=== PATIENT | male | born 1975 | race Caucasian/White ===

== ENCOUNTER 2016-12-28 07:25 | Emergency (ER) | payer BC ==
[~2016-12-28] VITALS: Ht 177.8 cm; Wt 81.6 kg
[~2016-12-28 07:25] MED LIST: AUGMENTIN XR 101 TER PO; CEFUROXIME AXE500 MG PO; EXPECTORANT200 MG PO; FLONASE 50 MCG16 GM; LEVAQUIN500 MG PO; MEDROL 4MG. DOSE4 MG PO; NOMEDS *; NOMEDS XX; PREDNISONE 20MG20 MG PO; TORADOL10 M2 PO
[2016-12-28] MEDS ORDERED: NOMEDS XX (07:37)
[2016-12-28 07:41] LABS: HEMOGLOBIN 16.6 g/dL (14.1-18.0); LYMPH # 1.4 K/mm3 (0.7-4.5); LYMPH % 28.5 % (10-50)
[2016-12-28 08:12] LABS: BUN 20 mg/dL (7-18)
[2016-12-28 08:13] LABS: GFR (ESTIMATED) 74 ML/MIN (>60)
--- NOTE | 2016-12-28 08:16 | Emergency Room Report ---
See Addendum History of Present Illness Time Seen by MD Campos Presenting Problem in Triage Pt arrived:Walked Presenting Problem:PT STATES THAT HE HAS CHEST PRESSURE/FULLNESS THAT BEGAN AT 0500. 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 N Clinical Suspician of Infection? N Mental Status: 1 - Regular (Normal Baseline) Sepsis Risk:Possible Sepsis Risk Have you (or family members/close friends) recently traveled outside the [place]? N If Yes, where/when: Have you had exposure to infectious disease within the past month? N TB? Other? Specify: Source patient, RN notes reviewed Exam Limitations no limitations Comment PT awakened at 5AM with a chest pressure and he comes to the ED still with Chest pressure ...history of Ashli and seen by Dr. Suero at [facility] but heart cath and stress test negative. History of some anxiety but no stress recently. Quit smoking over a year ago. BP is elevated today but no history of hypertension or hyperlipidemia and he is not a Diabetic Cardiac Chest Pain Chest pain indicative of cardiac Yes Timing/Duration 4-6 hours Severity/Quality moderate ALLERGIES Uncoded Allergies: IV CONTRAST (NA-NAUSEA 02/15/14) Home Medications Reported Medications No Home Medications (NO HOME MEDICATIONS) 1 EACH XX ONCE History Medical History General CAD? No Angina: Yes [place]: No Hypertension? Yes Hyperlipidemia? No CHF? No DVT? No PE? No COPD? No Asthma? No Anemia? No GERD? No Gastric ulcers? No GI Bleed? No Hernia? No Thyroid Problems? No Hypothyroidism? No CVA? No Seizures? No Diabetes? No Renal Insuffiency? No End Stage Renal Disease? No UTI? No Stones? No GB Disease: No Nephritic Syndrome? No Asplenia? No Hepatitis? No Sickle Cell Disease? No Arthritis? No Migraines? No Cataracts? No Glaucoma? No MRSA? No HIV? No TB? No Anxiety? No Depression? 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 Yes Additional hx: MONO IN 2016 PERSISTANT LEFT SIDE PAIN Immunization Hx DT/Tetanus 1-4 Years Ago Flu Refused Pneumonia Refuses Surgical Hx Previous Surgery?Y RT.WRIST LIGAMENT REPAIR VASECTOMY AND REVERSED L KNEE Family History Family Hx Diabetes Yes CAD Yes Hypertension Yes Hyperlipidemia Yes Cancer Yes TB No Social History Smoking Hx Smoker: Former Smoker Tobacco: No Type Cigarettes Packs/day N/A Are you/the child exposed to second-hand smoke: Yes Alcohol Alcohol: No Review of Systems All Other Systems Reviewed and Negative Constitutional see HPI Respiratory see HPI Cardiovascular see HPI Physical Exam Vital Signs Vital Signs Date Time Temp Pulse Resp B/P Pulse O2 O2 Flow FiO2 Ox Delivery Rate 12/28 1137 74 20 118/87 97 12/28 1036 98.6 76 20 124/89 97 12/28 1004 99.1 78 22 118/93 96 12/28 0842 80 22 121/68 97 12/28 0756 102 22 164/102 100 12/28 0730 98.3 100 22 168/93 100 General Appearance no apparent distress Respiratory Status No: respiratory distress. Lung Sounds bilateral: normal breath sounds. Cardiovascular normal exam, regular rate/rhythm Neurologic alert, communications manager II-XII nml as tested, normal exam Medical Decision Making LABS/Meds/Orders Pt receiving controlled substance in ED? No Results/Orders Laboratory Tests 12/28/16 1115: Creatine Kinase 149, CK-MB (CK-2) Rel Index 0.7, CK and CKMB Interp 1.0, Troponin I < 0.02 12/28/16 0733: Sodium 141, Potassium 3.8, Chloride 104, Carbon Dioxide 26, BUN 20 H, Creatinine 1.1, Estimated Creat Clear 103, Estimated GFR (MDRD) 74, Glucose 111 H, Calcium 9.0, Total Bilirubin 0.9, AST 23, ALT 22, Alkaline Phosphatase 73, Creatine Kinase 199, CK-MB (CK-2) Rel Index 0.5, CK and CKMB Interp 0.9, Troponin I < 0.02, Total Protein 7.8, Albumin 4.0, Globulin 3.8 H, Albumin/ Globulin Ratio 1.1, WBC 4.8, RBC 5.47, Hgb 16.6, Hct 46.7, MCV 85.3, RDW 12.8, Plt Count 236, MPV 5.9 L, Gran % 61.9, Gran # 3.0, Lymphocytes % 28.5, Monocytes % 6.1, Eosinophils % 2.8, Basophils % 0.6, Lymphocytes # 1.4, Monocytes # 0.3, Eosinophils # 0.1, Basophils # 0.0, PUBS MCHC 35.6 H, MCH 30.4 Current Medication Orders Sig/Kvng Start time Last Medication Dose Route Stop Time Status Admin Buspirone HCl 10 MG ONCE ONE 12/28 0845 DC 12/28 PO 12/28 0846 0857 Nitroglycerin 0 .STK-MED ONE 12/28 0831 DC SL Nitroglycerin 0.4 MG [id number] PRN 12/28 08 AC 12/28 PO 0834 Aspirin 0 .STK-MED ONE 12/28 0801 DC .ROUTE Aspirin 324 MG ONCE ONE 12/28 0800 DC 12/28 PO 12/28 0801 0802 Orders Procedure Date/time Status CARDIAC ENZYMES 12/28 0925 Complete CHEST(2 VIEWS-NOT PORTABLE) 12/28 0750 Active ELECTROCARDIOGRAM REQUEST 12/28 0736 Active IV SALINE LOCK 12/28 0736 Active PATIENT SAFETY OFFICER 12/28 0736 Active CBC WITH AUTO DIFF 12/28 0736 Complete CARDIAC ENZYMES 12/28 0736 Complete CHEM 12 PROFILE 12/28 0736 Complete 12 LEAD EKG-BESSON (INITIAL) 12/28 UNK Active Departure Departure Time of Disposition 1205 Disposition DC Home or Self Care(routine) Clinical Impression Primary Impression: Chest pain Qualifiers: Chest pain type: precordial pain Qualified Code: R07.2 - Precordial pain Secondary Impressions: Anxiety Condition STABLE Referrals [facility] Patient Instructions DI for Chest Pain Additional Instructions Advised to follow up with Dr. Ennis for further evaluation Discharge Counseling Counseled pt/family regarding diagnosis, test results, medications/RX, home care, follow up needs ED Critical Care Critical Care No If Critical Care minutes are documented, the time involved in the performance of seperately reportable procedures was not counted toward critical care time documented. I directly delivered medical care to this critically ill and/or injured patient. Timely evaluation and treatment was necessary to address the significant organ system(s) dysfunction present in this patient. at 1207
--- NOTE | 2016-12-28 08:16 | Emergency Room Report ---
See Addendum History of Present Illness Time Seen by MD Campos Presenting Problem in Triage Pt arrived:Walked Presenting Problem:PT STATES THAT HE HAS CHEST PRESSURE/FULLNESS THAT BEGAN AT 0500. 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 N Clinical Suspician of Infection? N Mental Status: 1 - Regular (Normal Baseline) Sepsis Risk:Possible Sepsis Risk Have you (or family members/close friends) recently traveled outside the [place]? N If Yes, where/when: Have you had exposure to infectious disease within the past month? N TB? Other? Specify: Source patient, RN notes reviewed Exam Limitations no limitations Comment PT awakened at 5AM with a chest pressure and he comes to the ED still with Chest pressure ...history of Ashli and seen by Dr. Suero at [facility] but heart cath and stress test negative. History of some anxiety but no stress recently. Quit smoking over a year ago. BP is elevated today but no history of hypertension or hyperlipidemia and he is not a Diabetic Cardiac Chest Pain Chest pain indicative of cardiac Yes Timing/Duration 4-6 hours Severity/Quality moderate ALLERGIES Uncoded Allergies: IV CONTRAST (NA-NAUSEA 02/15/14) Home Medications Reported Medications No Home Medications (NO HOME MEDICATIONS) 1 EACH XX ONCE History Medical History General CAD? No Angina: Yes [place]: No Hypertension? Yes Hyperlipidemia? No CHF? No DVT? No PE? No COPD? No Asthma? No Anemia? No GERD? No Gastric ulcers? No GI Bleed? No Hernia? No Thyroid Problems? No Hypothyroidism? No CVA? No Seizures? No Diabetes? No Renal Insuffiency? No End Stage Renal Disease? No UTI? No Stones? No GB Disease: No Nephritic Syndrome? No Asplenia? No Hepatitis? No Sickle Cell Disease? No Arthritis? No Migraines? No Cataracts? No Glaucoma? No MRSA? No HIV? No TB? No Anxiety? No Depression? 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 Yes Additional hx: MONO IN 2016 PERSISTANT LEFT SIDE PAIN Immunization Hx DT/Tetanus 1-4 Years Ago Flu Refused Pneumonia Refuses Surgical Hx Previous Surgery?Y RT.WRIST LIGAMENT REPAIR VASECTOMY AND REVERSED L KNEE Family History Family Hx Diabetes Yes CAD Yes Hypertension Yes Hyperlipidemia Yes Cancer Yes TB No Social History Smoking Hx Smoker: Former Smoker Tobacco: No Type Cigarettes Packs/day N/A Are you/the child exposed to second-hand smoke: Yes Alcohol Alcohol: No Review of Systems All Other Systems Reviewed and Negative Constitutional see HPI Respiratory see HPI Cardiovascular see HPI Physical Exam Vital Signs Vital Signs Date Time Temp Pulse Resp B/P Pulse O2 O2 Flow FiO2 Ox Delivery Rate 12/28 1137 74 20 118/87 97 12/28 1036 98.6 76 20 124/89 97 12/28 1004 99.1 78 22 118/93 96 12/28 0842 80 22 121/68 97 12/28 0756 102 22 164/102 100 12/28 0730 98.3 100 22 168/93 100 General Appearance no apparent distress Respiratory Status No: respiratory distress. Lung Sounds bilateral: normal breath sounds. Cardiovascular normal exam, regular rate/rhythm Neurologic alert, cooler worker II-XII nml as tested, normal exam Medical Decision Making LABS/Meds/Orders Pt receiving controlled substance in ED? No Results/Orders Laboratory Tests 12/28/16 1115: Creatine Kinase 149, CK-MB (CK-2) Rel Index 0.7, CK and CKMB Interp 1.0, Troponin I < 0.02 12/28/16 0733: Sodium 141, Potassium 3.8, Chloride 104, Carbon Dioxide 26, BUN 20 H, Creatinine 1.1, Estimated Creat Clear 103, Estimated GFR (MDRD) 74, Glucose 111 H, Calcium 9.0, Total Bilirubin 0.9, AST 23, ALT 22, Alkaline Phosphatase 73, Creatine Kinase 199, CK-MB (CK-2) Rel Index 0.5, CK and CKMB Interp 0.9, Troponin I < 0.02, Total Protein 7.8, Albumin 4.0, Globulin 3.8 H, Albumin/ Globulin Ratio 1.1, WBC 4.8, RBC 5.47, Hgb 16.6, Hct 46.7, MCV 85.3, RDW 12.8, Plt Count 236, MPV 5.9 L, Gran % 61.9, Gran # 3.0, Lymphocytes % 28.5, Monocytes % 6.1, Eosinophils % 2.8, Basophils % 0.6, Lymphocytes # 1.4, Monocytes # 0.3, Eosinophils # 0.1, Basophils # 0.0, PUBS MCHC 35.6 H, MCH 30.4 Current Medication Orders Sig/Kvng Start time Last Medication Dose Route Stop Time Status Admin Buspirone HCl 10 MG ONCE ONE 12/28 0845 DC 12/28 PO 12/28 0846 0857 Nitroglycerin 0 .STK-MED ONE 12/28 0831 DC SL Nitroglycerin 0.4 MG [id number] PRN 12/28 08 AC 12/28 PO 0834 Aspirin 0 .STK-MED ONE 12/28 0801 DC .ROUTE Aspirin 324 MG ONCE ONE 12/28 0800 DC 12/28 PO 12/28 0801 0802 Orders Procedure Date/time Status CARDIAC ENZYMES 12/28 0925 Complete CHEST(2 VIEWS-NOT PORTABLE) 12/28 0750 Active ELECTROCARDIOGRAM REQUEST 12/28 0736 Active IV SALINE LOCK 12/28 0736 Active TOLL TRANSMISSION WORKER 12/28 0736 Active CBC WITH AUTO DIFF 12/28 0736 Complete CARDIAC ENZYMES 12/28 0736 Complete CHEM 12 PROFILE 12/28 0736 Complete 12 LEAD EKG-BESSON (INITIAL) 12/28 UNK Active Departure Departure Time of Disposition 1205 Disposition DC Home or Self Care(routine) Clinical Impression Primary Impression: Chest pain Qualifiers: Chest pain type: precordial pain Qualified Code: R07.2 - Precordial pain Secondary Impressions: Anxiety Condition STABLE Referrals [facility] Patient Instructions DI for Chest Pain Additional Instructions Advised to follow up with Dr. Ennis for further evaluation Discharge Counseling Counseled pt/family regarding diagnosis, test results, medications/RX, home care, follow up needs ED Critical Care Critical Care No If Critical Care minutes are documented, the time involved in the performance of seperately reportable procedures was not counted toward critical care time documented. I directly delivered medical care to this critically ill and/or injured patient. Timely evaluation and treatment was necessary to address the significant organ system(s) dysfunction present in this patient. at 1207
[2016-12-28 12:18] VITALS: BP 157/91
--- NOTE | 2016-12-28 14:14 | RADIOLOGY REPORT PS360 ---
CHEST(2 VIEWS-NOT PORTABLE) INDICATION: Chest pain COMPARISON: PA and lateral chest 10/19/2016 FINDINGS: The lung gagnon are well expanded and appear clear of infiltrate. The cardiomediastinal silhouette and vascularity are normal. The costophrenic angles are clear. The bony thorax is normal. IMPRESSION: Normal chest.
== END 2016-12-28 12:23 | disposition home or self-care (01) ==
LOC: ER 07:25
PROVIDERS: Emergency Medicine
DX: R07.2 Precordial pain (principal); Z87.891 Personal history of nicotine dependence

== ENCOUNTER → 2016-12-30 | Outpatient (CLI) | payer BC ==
[~2016-12-30] MED LIST changes: +ASPIRIN325 M1 PO; +NITROGLYCERIN0.4 M1 SL; +PANTOPRAZOLE SO40 M1 PO; +PROCTOCREAM-HC2.5% TP
--- NOTE | 2016-12-30 17:49 | RADIOLOGY REPORT PS360 ---
CT ABD PELVIS W/O CONTRAST CLINICAL INDICATION: Left upper quadrant pain LUQ PAIN ORDERING PHYSICIAN: LYNETTE VELIZ PATIENT AGE: 41 years COMPARISON: None TECHNIQUE: Axial images obtained with sagittal and coronal reformats. PROCEDURE: Oral Contrast: None IV Contrast: None . FINDINGS: Lung bases are clear. No focal liver lesion evident. There is mild splenomegaly measuring 15 cm in maximum AP dimension. The pancreas, and adrenal glands are unremarkable. Gallbladder appears contracted with mild thickening of the wall which could be postprandial in nature. Please correlate clinically. No renal calculi or hydronephrosis. No obvious renal mass. No ureteral calculi. Prior appendectomy. No evidence of diverticulitis, intestinal obstruction, or free air. Prior mastectomy. The abdominal wall has an unremarkable appearance. No acute bony anomalies. IMPRESSION: 1. Mild splenomegaly. 2. Other nonacute findings as described above.
== END ==
LOC: RAD 14:46
DX: R10.12 Left upper quadrant pain (principal)

== ENCOUNTER 2017-01-05 16:43 | Observation (INO) | payer BC ==
[~2017-01-05] VITALS: Ht 177.8 cm; Wt 83.3 kg
[~2017-01-05 16:43] MED LIST changes: -ASPIRIN325 M1 PO; -NITROGLYCERIN0.4 M1 SL; -PANTOPRAZOLE SO40 M1 PO; -PROCTOCREAM-HC2.5% TP
[2017-01-05 16:44] VITALS: BP 150/90
[2017-01-05] MEDS ORDERED: NITROGLYCERIN0.4 M1 SL (16:48)
[2017-01-05 16:55] LABS: HEMOGLOBIN 15.9 g/dL (14.1-18.0); LYMPH # 1.8 K/mm3 (0.7-4.5); LYMPH % 28.4 % (10-50)
[2017-01-05 17:23] LABS: BUN 16 mg/dL (7-18)
--- NOTE | 2017-01-05 17:23 | Emergency Room Report ---
See Addendum History of Present Illness Time Seen by [id number] Presenting Problem in Triage Pt arrived:Walked Presenting Problem:PT SENT FROM [facility]'S OFFICE WITH CHEST PRESSURE. PT ADVISES HE FEELS LIKE SOMEONE IS SITTING ON HIS CHEST. ADVISES THIS STARTED EARLY THIS AM. 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 N Clinical Suspician of Infection? N Mental Status: 1 - Regular (Normal Baseline) Sepsis Risk:Low Sepsis Risk Have you (or family members/close friends) recently traveled outside the [place]? N If Yes, where/when: Have you had exposure to infectious disease within the past month? N TB? Other? Specify: Patient reports chest "heaviness" with onset yesterday at rest, nonradiating, no SOB, no n/v, no diaphoresis. Had a similar episode about eleven days ago, cardiac enzymes normal and discharged home with recommendation to follow up with his firer retort. He has an appointment with Dr. Everett on February 03. However, the chest pressure has been persistent and he presented to his JEWELRY MECHANIC's office earlier today and he states his heart rate varied between the 80's and low 100's. He took aspirin HYDROGEN OPERATOR and received ASA on arrival in the ED. He was given one NTG at the JEWELRY MECHANIC office with relief of discomfort. He arrives in NSR with a rate in the low 80's but still c/o some "pressure" but not pain. 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 He denies known CAD, denies HTN, denies hyperlipidemia and denies DM. States dad had a hx of "bundle branch block" and dad's parents had CAD. ALLERGIES Uncoded Allergies: IV CONTRAST (NA-NAUSEA 02/15/14) Home Medications Reported Medications No Home Medications (NO HOME MEDICATIONS) 1 EACH XX ONCE Nitroglycerin 0.4 MG SL PRN PRN CHEST PAIN #100 History Medical History General CAD? No Angina: Yes [place]: No Hypertension? Yes Hyperlipidemia? No CHF? No DVT? No PE? No COPD? No Asthma? No Anemia? No GERD? No Gastric ulcers? No GI Bleed? No Hernia? No Thyroid Problems? No Hypothyroidism? No CVA? No Seizures? No Diabetes? No Renal Insuffiency? No End Stage Renal Disease? No UTI? No Stones? No GB Disease: No Nephritic Syndrome? No Asplenia? No Hepatitis? No Sickle Cell Disease? No Arthritis? No Migraines? No Cataracts? No Glaucoma? No MRSA? No HIV? No TB? No Anxiety? No Depression? 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 Yes Additional hx: MONO IN 2016 PERSISTANT LEFT SIDE PAIN Immunization Hx DT/Tetanus 1-4 Years Ago Flu Refused Pneumonia Refuses Surgical Hx Previous Surgery?Y RT.WRIST LIGAMENT REPAIR VASECTOMY AND REVERSED L KNEE Family History Family Hx Diabetes Yes CAD Yes Hypertension Yes Hyperlipidemia Yes Cancer Yes TB No Social History Smoking Hx Smoker: Former Smoker Tobacco: No Packs/day N/A Alcohol Alcohol: No Review of Systems All Other Systems Reviewed and Negative Cardiovascular see HPI Physical Exam Vital Signs Vital Signs Date Time Temp Pulse Resp B/P Pulse O2 O2 Flow FiO2 Ox Delivery Rate 01/05 1747 85 20 125/93 98 01/05 1644 98.5 97 16 150/90 98 General Appearance normal appearance, WD/WN, no apparent distress Eye Exam - bilateral eye normal exam, bilateral eye PERRL, bilateral eye EOMI Neck normal inspection, non-tender, supple, full range of motion Respiratory Status Yes: trachea midline, chest symmetrical, non tender chest. No: respiratory distress, tender on palpation, use of accessory muscles, pain on inspiration, pain on expiration, productive cough, non productive cough. Lung Sounds bilateral: normal breath sounds, lungs clear. Cardiovascular normal exam, regular rate/rhythm, no peripheral edema, no gallop, no JVD, no murmur, no rub, normal peripheral pulses Gastrointestinal normal bowel sounds, normal exam, non tender, soft, no organomegaly, no pulsatile mass, no guarding, no rebound Extremities non-tender, normal range of motion, normal inspection, normal capillary refill, no calf tenderness, no pedal edema Neurologic alert, normal exam, no motor/sensory deficits, oriented x 3 Skin intact, normal color, warm/dry Lymphatic no adenopathy Medical Decision Making LABS/Meds/Orders Pt receiving controlled substance in ED? No Results/Orders Laboratory Tests 01/05/17 1640: TSH Pending, Free T4 Index Pending, Thyroxine (T4) Pending, T3 Uptake Pending 01/05/17 1640: Sodium 138, Potassium 3.8, Chloride 103, Carbon Dioxide 28, BUN 16, Creatinine 1.0, Estimated Creat Clear 117, Estimated GFR (MDRD) 83, Glucose 111 H, Calcium 8.8, Total Bilirubin 0.5, AST 23, ALT 23, Alkaline Phosphatase 65, Creatine Kinase 115, CK-MB (CK-2) Rel Index 0.5, CK and CKMB Interp 0.6, Troponin I < 0.02, Total Protein 7.7, Albumin 4.0, Globulin 3.7 H, Albumin/Globulin Ratio 1.1, D-Dimer < 100, WBC 6.4, RBC 5.36, Hgb 15.9, Hct 46.1, MCV 85.9, RDW 12.8, Plt Count 264, MPV 5.9 L, Gran % 60.7, Gran # 3.9, Lymphocytes % 28.4, Monocytes % 7.2, Eosinophils % 3.0, Basophils % 0.7, Lymphocytes # 1.8, Monocytes # 0.5, Eosinophils # 0.2, Basophils # 0.1, PUBS MCHC 34.5, MCH 29.6 Current Medication Orders Sig/Kvng Start time Last Medication Dose Route Stop Time Status Admin Aspirin 324 MG ONCE ONE 01/05 1700 DC 01/05 PO 01/05 1701 1650 Sodium Chloride 10 ML PRN PRN 01/05 1700 AC IV 01/06 1649 Aspirin 0 .STK-MED ONE 01/05 1651 DC .ROUTE Orders Procedure Date/time Status Decision to admit 01/05 1757 Active THYROID PANEL 2 (WITH TSH) 01/05 1707 Active ELECTROCARDIOGRAM REQUEST 01/05 1649 Active CHEST(2 VIEWS-NOT PORTABLE) 01/05 1649 Active IV SALINE LOCK 01/05 1649 Active D-DIMER 01/05 1649 Complete CBC WITH AUTO DIFF 01/05 1649 Complete CARDIAC ENZYMES 01/05 164 Complete CHEM 12 PROFILE 01/05 1649 Complete CM/EKG CM/EKG EKG rate, NSR, rhythm, no evid. of ischemic chgs, no ectopy, normal QRS, normal [place], normal EKG (NSR 83;) XRAY/CT/US XRAY/CT/US XRAY chest XR interpretation by reviewed by me Xray Results no infiltrates, normal heart size, normal lung inflation fernando Consult MD Physician Consult Time Called 175 Reason Admission Progress ED Progress Notes Date 01/05/17 Time 175 Comment Patient stable, resting comfortably, in NSR, no complaints, is in NSR on monitor with Dr. Rain alterations expert for Dr. Bina orlando. Departure Departure Time of Disposition 175 Disposition Still a Patient Clinical Impression Primary Impression: Chest pressure Condition STABLE Referrals [facility] LOMBARDO (Family) ED Critical Care Critical Care No at 1750
--- NOTE | 2017-01-05 17:23 | Emergency Room Report ---
See Addendum History of Present Illness Time Seen by [id number] Presenting Problem in Triage Pt arrived:Walked Presenting Problem:PT SENT FROM [facility] OFFICE WITH CHEST PRESSURE. PT ADVISES HE FEELS LIKE SOMEONE IS SITTING ON HIS CHEST. ADVISES THIS STARTED EARLY THIS AM. Onset of symptoms date/time:/ or onset unknown for:MEDICAL HX UNKNOWN Treatment Prior to Arrival: PT WAS BEING SEEN AT HIS FAMILY DOC FOR CHEST PRESSURE AND WAS SENT TO ER FOR FURTHER EVAUL BARREL TURNER Provided by:OTHER Sepsis Risk Assessment: Temp: 98.5 B/P: 150/90 MAP: 110 Pulse: 97 Resp: 16 Recent fever? N Clinical Suspician of Infection? N Mental Status: 1 - Regular (Normal Baseline) Sepsis Risk:Low Sepsis Risk Have you (or family members/close friends) recently traveled outside the [place]? N If Yes, where/when: Have you had exposure to infectious disease within the past month? N TB? Other? Specify: Patient reports chest "heaviness" with onset yesterday at rest, nonradiating, no SOB, no n/v, no diaphoresis. Had a similar episode about eleven days ago, cardiac enzymes normal and discharged home with recommendation to follow up with his welder boilermaker. He has an appointment with Dr. Everett on February 03. However, the chest pressure has been persistent and he presented to his WEB MARKETING ANALYST's office earlier today and he states his heart rate varied between the 80's and low 100's. He took aspirin BARREL TURNER and received ASA on arrival in the ED. He was given one NTG at the WEB MARKETING ANALYST office with relief of discomfort. He arrives in NSR with a rate in the low 80's but still c/o some "pressure" but not pain. 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 He denies known CAD, denies HTN, denies hyperlipidemia and denies DM. States dad had a hx of "bundle branch block" and dad's parents had CAD. ALLERGIES Uncoded Allergies: IV CONTRAST (NA-NAUSEA 02/15/14) Home Medications Reported Medications No Home Medications (NO HOME MEDICATIONS) 1 EACH XX ONCE Nitroglycerin 0.4 MG SL PRN PRN CHEST PAIN #100 History Medical History General CAD? No Angina: Yes [place]: No Hypertension? Yes Hyperlipidemia? No CHF? No DVT? No PE? No COPD? No Asthma? No Anemia? No GERD? No Gastric ulcers? No GI Bleed? No Hernia? No Thyroid Problems? No Hypothyroidism? No CVA? No Seizures? No Diabetes? No Renal Insuffiency? No End Stage Renal Disease? No UTI? No Stones? No GB Disease: No Nephritic Syndrome? No Asplenia? No Hepatitis? No Sickle Cell Disease? No Arthritis? No Migraines? No Cataracts? No Glaucoma? No MRSA? No HIV? No TB? No Anxiety? No Depression? 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 Yes Additional hx: MONO IN 2016 PERSISTANT LEFT SIDE PAIN Immunization Hx DT/Tetanus 1-4 Years Ago Flu Refused Pneumonia Refuses Surgical Hx Previous Surgery?Y RT.WRIST LIGAMENT REPAIR VASECTOMY AND REVERSED L KNEE Family History Family Hx Diabetes Yes CAD Yes Hypertension Yes Hyperlipidemia Yes Cancer Yes TB No Social History Smoking Hx Smoker: Former Smoker Tobacco: No Packs/day N/A Alcohol Alcohol: No Review of Systems All Other Systems Reviewed and Negative Cardiovascular see HPI Physical Exam Vital Signs Vital Signs Date Time Temp Pulse Resp B/P Pulse O2 O2 Flow FiO2 Ox Delivery Rate 01/05 1747 85 20 125/93 98 01/05 1644 98.5 97 16 150/90 98 General Appearance normal appearance, WD/WN, no apparent distress Eye Exam - bilateral eye normal exam, bilateral eye PERRL, bilateral eye EOMI Neck normal inspection, non-tender, supple, full range of motion Respiratory Status Yes: trachea midline, chest symmetrical, non tender chest. No: respiratory distress, tender on palpation, use of accessory muscles, pain on inspiration, pain on expiration, productive cough, non productive cough. Lung Sounds bilateral: normal breath sounds, lungs clear. Cardiovascular normal exam, regular rate/rhythm, no peripheral edema, no gallop, no JVD, no murmur, no rub, normal peripheral pulses Gastrointestinal normal bowel sounds, normal exam, non tender, soft, no organomegaly, no pulsatile mass, no guarding, no rebound Extremities non-tender, normal range of motion, normal inspection, normal capillary refill, no calf tenderness, no pedal edema Neurologic alert, normal exam, no motor/sensory deficits, oriented x 3 Skin intact, normal color, warm/dry Lymphatic no adenopathy Medical Decision Making LABS/Meds/Orders Pt receiving controlled substance in ED? No Results/Orders Laboratory Tests 01/05/17 1640: TSH Pending, Free T4 Index Pending, Thyroxine (T4) Pending, T3 Uptake Pending 01/05/17 1640: Sodium 138, Potassium 3.8, Chloride 103, Carbon Dioxide 28, BUN 16, Creatinine 1.0, Estimated Creat Clear 117, Estimated GFR (MDRD) 83, Glucose 111 H, Calcium 8.8, Total Bilirubin 0.5, AST 23, ALT 23, Alkaline Phosphatase 65, Creatine Kinase 115, CK-MB (CK-2) Rel Index 0.5, CK and CKMB Interp 0.6, Troponin I < 0.02, Total Protein 7.7, Albumin 4.0, Globulin 3.7 H, Albumin/Globulin Ratio 1.1, D-Dimer < 100, WBC 6.4, RBC 5.36, Hgb 15.9, Hct 46.1, MCV 85.9, RDW 12.8, Plt Count 264, MPV 5.9 L, Gran % 60.7, Gran # 3.9, Lymphocytes % 28.4, Monocytes % 7.2, Eosinophils % 3.0, Basophils % 0.7, Lymphocytes # 1.8, Monocytes # 0.5, Eosinophils # 0.2, Basophils # 0.1, PUBS MCHC 34.5, MCH 29.6 Current Medication Orders Sig/Kvng Start time Last Medication Dose Route Stop Time Status Admin Aspirin 324 MG ONCE ONE 01/05 1700 DC 01/05 PO 01/05 1701 1650 Sodium Chloride 10 ML PRN PRN 01/05 1700 AC IV 01/06 1649 Aspirin 0 .STK-MED ONE 01/05 1651 DC .ROUTE Orders Procedure Date/time Status Decision to admit 01/05 1757 Active THYROID PANEL 2 (WITH TSH) 01/05 1707 Active ELECTROCARDIOGRAM REQUEST 01/05 1649 Active CHEST(2 VIEWS-NOT PORTABLE) 01/05 1649 Active IV SALINE LOCK 01/05 1649 Active D-DIMER 01/05 1649 Complete CBC WITH AUTO DIFF 01/05 1649 Complete CARDIAC ENZYMES 01/05 164 Complete CHEM 12 PROFILE 01/05 1649 Complete CM/EKG CM/EKG EKG rate, NSR, rhythm, no evid. of ischemic chgs, no ectopy, normal QRS, normal MA, normal EKG (NSR 83;) XRAY/CT/US XRAY/CT/US XRAY chest XR interpretation by reviewed by me Xray Results no infiltrates, normal heart size, normal lung inflation fernando Consult MD Physician Consult Time Called 175 Reason Admission Progress ED Progress Notes Date 01/05/17 Time 175 Comment Patient stable, resting comfortably, in NSR, no complaints, is in NSR on monitor with Dr. Rain stone belt sander for Dr. Bina orlando. Departure Departure Time of Disposition 175 Disposition Still a Patient Clinical Impression Primary Impression: Chest pressure Condition STABLE Referrals [facility] (Family) ED Critical Care Critical Care No at 1750
[2017-01-05 17:24] LABS: GFR (ESTIMATED) 83 ML/MIN (>60)
[2017-01-05 18:08] LABS: FREE THYROXIN INDEX 7.6 ug/dl (5.93-13.13)
[2017-01-05 18:36] VITALS: BP 119/73
[2017-01-05 18:37] VITALS: BP 119/73
[2017-01-05 20:26] VITALS: BP 114/84
--- NOTE | 2017-01-05 20:30 | RADIOLOGY REPORT PS360 ---
CHEST(2 VIEWS-NOT PORTABLE) Ordering Physician: Zach Curran MD Patient Age: 41 years: Male HISTORY: CHEST PRESSUREchest pain TECHNIQUE: PA and lateral chest. FINDINGS No significant change versus 12/28/2016 CXR. No pneumothorax. No focal pneumonia. No pleural effusion. No active disease evident. Heart sadie and mediastinal structures satisfactory. Chest wall unremarkable. Heart normal size. Normal pulmonary vascularity IMPRESSION: Stable chest with No active disease. .
[2017-01-05 21:20] VITALS: BP 114/84
[2017-01-06] VITALS (7 sets, daily range): BP systolic 106–131; BP diastolic 58–82
[2017-01-06 06:28] LABS: HEMOGLOBIN 14.9 g/dL (14.1-18.0); LYMPH # 1.3 K/mm3 (0.7-4.5); LYMPH % 26.2 % (10-50)
--- NOTE | 2017-01-06 08:01 | CONSULT NOTE ---
Standard Demographics Patient Demo Date of Consultation: 01/06/17 Referring Provider: Christiano Curran MD Reason for Consultation: Chest pain PRIMARY DIAGNOSIS: CHEST PAIN Problem list Problem list: 1. Ex-smoker, discontinued approximately 2007. 2. History of Wenkebach in past but without syncope. 3. History of normal cardiac catheterization approximately 15 years ago. 4. Family history of coronary artery disease in grandparents. History of present illness: History of present illness: 41-year-old white male admitted through the emergency department due to recurrent episodes of chest pain. Patient describes a 2 week history of heavy chest pressure without radiation, shortness of breath, nausea, vomiting or diaphoresis. 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 Patient has an appointment late in January. Symptoms recurred yesterday at rest at work but also patient states symptoms occur with activity. He became concerned and went to his family practice doctor at which time he was given sublingual nitroglycerin for the chest discomfort with relief of discomfort. He also relates of variation in heart rate from the 70s to the 120s. He was sent to the emergency department for further evaluation. Due to recurrence of symptoms patient was admitted for further observation. Troponins have returned normal. Electrocardiogram is sinus rhythm without acute ST segment changes. Cardiology consulted for further evaluation. Past Medical History: General: Hypertension Yes CVA No Seizures No TB No COPD No Asthma No Diabetes No Angina Yes [place] No Hyperlipidemia No Urinary No Cancer Yes Rheumatic H.D. No Ulcers No MRSA No GB Disease No Other HX OF HISTOPLASMOSIS Additional hx MONO IN 2016 PERSISTANT LEFT SIDE PAIN Past Surgical HX: Previous Surgery?Y RT.WRIST LIGAMENT REPAIR VASECTOMY AND REVERSED L KNEE Allergies Coded Allergies: Iodinated Contrast Media - Oral and (Intermediate, 01/06/17) Home medications: Reported Medications Nitroglycerin 0.4 MG SL PRN PRN CHEST PAIN #100 No Home Medications (NO HOME MEDICATIONS) 1 EACH XX ONCE Current Medications: Current Medications Aspirin 325 MG DAILY PO Hydrocortisone 2 GM BID TP Acetaminophen 650 MG Q4HP PRN PO Nitroglycerin 0.4 MG PRN PRN SL Sodium Chloride 10 ML PRN PRN IV Aspirin 324 MG ONCE ONE PO (DC) Sodium Chloride 10 ML PRN PRN IV Aspirin 0 .STK-MED ONE .ROUTE (DC) Immunization HX DT/Tetanus 1-4 Years Flu Refused Pneumonia Unknown Rec'd Unknown TB Test in last year No Family history Family HX Family Hx Insignificant No Diabetes No CAD Yes Hypertension Yes Hyperlipidemia Yes Cancer Yes TB No Social Hx: Smoking HX Tobacco No Packs/day N/A Are you/the child exposed to second-hand smoke: No Alcohol Alcohol: Yes How much do you drink 1-2 Drinks Per Day For how long 1-2 Years When was your last drink 24-48 Hours Ago Comment SOCIAL DRINKING Hx of Drug Use Drug Use? No Patien't marital status is Patient's support system is good Review of systems: Constitutional No: no symptoms reported. Respiratory No: no symptoms reported. Cardiovascular see HPI, chest pain Gastrointestinal/Abdominal No no symptoms reported Genitourinary No: no symptoms reported. Musculoskeletal No: no symptoms reported. Neurological No: no symptoms reported. Exam: Admission Vital Signs: 1ST Vital Signs Result Date Time Pulse Ox 98 01/05 1644 B/P 150/90 01/05 1644 Temp 98.5 01/05 1644 Pulse 97 01/05 1644 Resp 16 01/05 1644 O2 Delivery ROOM AIR 01/05 1836 Last Vital Signs: Vital Signs Result Date Time Pulse Ox 96 01/06 0742 B/P 108/62 01/06 0742 O2 Delivery ROOM AIR 01/06 0742 Temp 98.1 01/06 0742 Pulse 76 01/06 0742 Resp 20 01/06 0742 Exam General appearance: alert, awake, no acute distress Neck: no carotid bruit, no JVD Cardiovascular: regular rate & rhythm, no murmur Respiratory: clear to auscultation, normal breath sounds ABD: soft, no tenderness Extremities: moves all, no peripheral edema Neuro: alert, intact, oriented Laboratory data: Laboratory Tests 01/06/17 0600: Sodium 142, Potassium 4.2, Chloride 106, Carbon Dioxide 28, BUN 15, Creatinine 1.0, Estimated Creat Clear 116, Estimated GFR (MDRD) 83, Glucose 106, Calcium 8.7, WBC 4.8, RBC 4.96, Hgb 14.9, Hct 43.0, MCV 86.7, RDW 12.8, Plt Count 201, MPV 6.0 L, Gran % 64.2, Gran # 3.1, Lymphocytes % 26.2, Monocytes % 6.6, Eosinophils % 2.4, Basophils % 0.7, Lymphocytes # 1.3, Monocytes # 0.3, Eosinophils # 0.1, Basophils # 0.0, PUBS MCHC 34.6, MCH 30.0 01/06/17 0110: Troponin I < 0.02 01/05/17 2152: Troponin I < 0.02 01/05/17 1640: TSH 0.70, Free T4 Index 7.6, Thyroxine (T4) 7.8, T3 Uptake 39 01/05/17 1640: Sodium 138, Potassium 3.8, Chloride 103, Carbon Dioxide 28, BUN 16, Creatinine 1.0, Estimated Creat Clear 117, Estimated GFR (MDRD) 83, Glucose 111 H, Calcium 8.8, Total Bilirubin 0.5, AST 23, ALT 23, Alkaline Phosphatase 65, Creatine Kinase 115, CK-MB (CK-2) Rel Index 0.5, CK and CKMB Interp 0.6, Troponin I < 0.02, Total Protein 7.7, Albumin 4.0, Globulin 3.7 H, Albumin/Globulin Ratio 1.1, D-Dimer < 100, WBC 6.4, RBC 5.36, Hgb 15.9, Hct 46.1, MCV 85.9, RDW 12.8, Plt Count 264, MPV 5.9 L, Gran % 60.7, Gran # 3.9, Lymphocytes % 28.4, Monocytes % 7.2, Eosinophils % 3.0, Basophils % 0.7, Lymphocytes # 1.8, Monocytes # 0.5, Eosinophils # 0.2, Basophils # 0.1, PUBS MCHC 34.5, MCH 29.6 Plan: Assessment: 1. Chest pain with normal troponins and unremarkable electrocardiogram. ALEIDA score of 1. 2. History of Wenckebach phenomenon 3. Ex-smoker, discontinued 9 years ago. Recommendations: 1. Echo reviewed. Normal LVEF with mildy enlarged RV. No significant valve disease. 2. will get GXT today and if normal then ok for discharge home. 3. Add prilosec 40 mg daily 4. Add inderal LA 60 mg daily for palpitations and chest pain. 5. If discharge home then follow up in 1-2 wks. Will plan to get sleep study in future to assess for EDGARDO in setting of daytime fatigue, snoring and mild RV enlargement on echo. at [id number]
--- NOTE | 2017-01-06 13:10 | DISCHARGE SUMMARY STANDARD ---
Demographics Admit date: 01/05/17 Discharge date: 01/06/17 Comment: Patient was seen in clinic yesterday afternoon. Complained of chest pressure that was relieved with nitroglycerin. Had been seen in ER for similar episode one week prior and although cardiac enzymes were negative, he never really felt better. Has a history of Wenkebach, but states hasn't really had any problems for several years. Made outpatient f/u with Dr Chaves, but it isn't until the end of January. He was diaphoretic and clammy in the office and was sent to the ER. AGain, EKG and labs were normal but he was admitted for observation and cardiac consult. Cardiology cleared him this am. History of present illness History of present illness From admission: 41-year-old white male admitted through the emergency department due to recurrent episodes of chest pain. Patient describes a 2 week history of heavy chest pressure without radiation, shortness of breath, nausea, vomiting or diaphoresis. 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 Patient has an appointment late in January. Symptoms recurred yesterday at rest at work but also patient states symptoms occur with activity. He became concerned and went to his family practice doctor at which time he was given sublingual nitroglycerin for the chest discomfort with relief of discomfort. He also relates of variation in heart rate from the 70s to the 120s. He was sent to the emergency department for further evaluation. Due to recurrence of symptoms patient was admitted for further observation. Troponins have returned normal. Electrocardiogram is sinus rhythm without acute ST segment changes. Cardiology consulted for further evaluation. Hospital Course Hospital Course: Was cleared by cardiology this am following stress test. Cardiac enzymes have remained normal. Discharge diagnoses Problem List 1. Chest pain 2. Anxiety Medications Medications: Discharge meds are as noted. Follow up Follow up in office in: 1 DAY with: [facility] LOMBARDO at 1310
[2017-01-06] MEDS ORDERED: PANTOPRAZOLE SO40 M1 PO (13:12)
[2017-01-06] MEDS ORDERED: ASPIRIN325 M1 PO (13:12)
[2017-01-06] MEDS ORDERED: PROCTOCREAM-HC2.5% TP (13:14)
--- NOTE | 2017-01-07 16:28 | RADIOLOGY REPORT PS360 ---
PROCEDURE: INDICATIONS FOR THE TEST: Chest pain X COPD Heart Murmur Tobacco Smoking Palpitations Fatigue Syncope Edema Hypertension Diabetes Mellitus Rheumatic Fever SOB [place] Obesity Hyperlipidemia Family History HD Additional History H/O HANNAH PATIENT INFORMATION HEIGHT: 70 WEIGHT:183 GENDER: Male B/P:108/62 2-D/M-MODE INTERPRETATION: 2-D MEASUREMENTS OBSERVED VALUES IN CMS Right Ventricular Dimension (RVDd) 2.1 Interventricular Septum (Thickness)(IVsd) .9 Left Ventricular Internal Dimensions(LVIDd) 5.4 Left Ventricular Posterior Wall (Thickness)(LVPWd) 1.2 Aortic Root 3.3 Aortic Cusp Separation 1.9 Left Atrial Dimensions (LAD) 3.0 2D 1. Left atrium is normal size, left ventricle is normal size, there is no concentric left ventricular hypertrophy, visually estimated ejection fraction 55% with no obvious regional wall motion abnormality. 2. The right atrium and right ventricle are normal size and contractility. 3. The aortic, mitral and tricuspid valve is structurally normal. 4. The pulmonic valve is not well visualized. 5. There is no significant pericardial effusion noted. DOPPLER INTERROGATION: Doppler interrogation of the aortic mitral and tricuspid valvular presence of trace mitral and tricuspid regurgitation, tricuspid regurgitant jet velocity insufficient for calculation of the right ventricular systolic pressure. Diastolic parameters are within normal range. CONCLUSION: 1. Normal left ventricular size, there is a left ventricle systolic function visually estimated ejection fraction 55% with no obvious regional wall motion abnormality. 2. Trace mitral and tricuspid regurgitation. 3. No significant pericardial effusion noted.
--- OUTSIDE RECORDS SUMMARY | 2017-01-10 13:36 | External Medical Summary Rpt ---
Author Author [employer] Organization [employer] Address Unknown Phone Unavailable Purpose Continuity of Care Document - through 2016
--- OUTSIDE RECORDS SUMMARY | 2017-01-10 13:36 | External Medical Summary Rpt ---
Author Author [employer], [employer] Organization [employer] Address Unknown Phone Unavailable
--- OUTSIDE RECORDS SUMMARY | 2017-01-10 13:36 | External Medical Summary Rpt ---
Demographics Preferred Language Puerto Rican Marital Status Unknown Jainism Affiliation Unknown Race Unknown Ethnic Group Unknown Author Author , Organization [employer] Address Unknown Phone Unavailable Purpose Continuity of Care Document - through 2016 Immunization No patient found.
--- OUTSIDE RECORDS SUMMARY | 2017-01-10 13:36 | External Medical Summary Rpt ---
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 Role Phone Gavin Boyd MD, Unavailable Unavailable Gavin Boyd MD Purpose Continuity of Care Document - 03-10-2013 through 2016 Problems Code Diagnosis DOS Provider Status 780.79 [facility] and [facility] F41.9 ANXIETY DISORDER, UNSPECIFIED R07.89 OTHER CHEST PAIN R07.9 CHEST PAIN, UNSPECIFIED Allergies, Adverse Reactions, Alerts Type Allergy to substance Adverse Reaction to Substance Substance Reaction Severity NO KNOWN ALLERGIES Unknown Unknown Medications Na ND Rx Da Fi Fi Am Da Di Ph RX Ph St me C No te ll ll ou ys ag ar # ys at rm s nt no ma ic us Or Da si cy ia de te s n re d Sa 63 02 0 No li 80 -0 ne 70 7- Lo 10 20 ng Fl 07 14 er us 5 h Ac 10 ti ML ve Sy ri ng e 66 02 0 No PI 55 -0 RI 30 7- Lo N 00 20 ng 32 10 14 er 5 1 MG Ac ti TA ve BL ET Sa 63 02 0 No li 80 -0 ne 70 7- Lo 10 20 ng Fl 07 14 er us 5 h Ac 10 ti ML ve Sy ri ng e SO 00 06 0 No DI 40 -2 UM 97 7- Lo 98 20 ng CH 30 13 er LO 9 RI Ac DE ti ve 0. 9% SO RAFA TI ON Sa 63 06 1 No li 80 -2 ne 70 7- Lo 10 20 ng Fl 07 13 er us 5 h Ac 10 ti ML ve Sy ri ng e 63 06 1 No PI 73 -2 RI 90 7- Lo N 02 20 ng EC 30 13 er 1 32 Ac 5 ti MG ve TA BL ET Vital Signs 10-21-2013 14:01 Name Value Interpretat Reference Comment ion Range Body 98.2 [degF] Temperature BP 79 mm[Hg] Diastolic BP Systolic 116 mm[Hg] Heart 77 /min Rate/Pulse O2% 95 % Respiratory 18 /min Rate 10-21-2013 10:34 Name Value Interpretat Reference Comment ion Range BP 95 mm[Hg] Diastolic BP Systolic 141 mm[Hg] Heart 90 /min Rate/Pulse O2% 98 % Respiratory 20 /min Rate 03-13-2013 17:16 Name Value Interpretat Reference Comment ion Range BP 97 mm[Hg] Diastolic BP Systolic 151 mm[Hg] Heart 85 /min Rate/Pulse O2% 98 % Respiratory 16 /min Rate 03-13-2013 16:21 Name Value Interpretat Reference Comment ion Range Body 98.5 [degF] Temperature 03-13-2013 15:14 Name Value Interpretat Reference Comment ion Range O2% 100 % Respiratory 18 /min Rate 03-13-2013 14:17 Name Value Interpretat Reference Comment ion Range BP 86 mm[Hg] Diastolic BP Systolic 136 mm[Hg] Heart 81 /min Rate/Pulse 03-11-2013 11:35 Name Value Interpretat Reference Comment ion Range Body 97.5 [degF] Temperature BP 74 mm[Hg] Diastolic BP Systolic 107 mm[Hg] Heart 64 /min Rate/Pulse Respiratory 18 /min Rate 03-11-2013 08:00 Name Value Interpretat Reference Comment ion Range O2% 100 % 03-10-2013 21:19 Name Value Interpretat Reference Comment ion Range Height 177.80 cm Weight 82.555 kg Measured 03-10-2013 17:45 Name Value Interpretat Reference Comment ion Range Body 98.3 [degF] Temperature BP 91 mm[Hg] Diastolic BP Systolic 134 mm[Hg] Heart 79 /min Rate/Pulse O2% 100 % Respiratory 18 /min Rate Weight 0 [oz_av] Measured Results Labs Lab Lab Date Result Refere Interp Status Commen Order Detail nces retati t Range on Hgb A1c Bld (01-07-2017 11:58) Comment: The [place] recommends maintenance of Hemoglobin A1C at 7.0% or lower. Goals for Hemoglobin A1C reduction may need to be modified if hypoglycemia is a problem. Hgb A1c 4.80 % 4.80-5. complet MFr 017 60 ed Bld 11:58 CBC W Diff pnl,unspecified Bld (01-07-2017 11:58) Imm 0.01 0.00-0. complet Granulo 017 10*3/mm 03 ed cytes # 11:58 3 Bld Basophi 04-26-2 0.03 0.00-0. complet ls # 017 10*3/mm 20 ed Bld 11:58 3 Auto Eosinop 04-26-2 0.06 0.10-0. complet hil # 017 10*3/mm 30 ed Bld 11:58 3 Auto Monocyt 04-26-2 0.44 0.00-1. complet es # 017 10*3/mm 00 ed Bld 11:58 3 Auto Lymphoc 04-26-2 1.27 0.60-4. complet ytes # 017 10*3/mm 80 ed Bld 11:58 3 Auto Neutrop 04-26-2 3.67 1.50-8. complet hils # 017 10*3/mm 30 ed Bld 11:58 3 Auto Imm 04-26-2 0.2 % 0.0-0.6 complet Granulo 017 ed cytes/l 11:58 euk NFr Bld Basophi -26-2 0.5 % 0.0-1.0 complet ls/leuk 017 ed NFr 11:58 Bld Auto Eosinop 04-26-2 1.1 % 0.0-3.0 complet hil/sloan 017 ed k NFr 11:58 Bld Auto Monocyt -26-2 8.0 % 0.0-12. complet es/leuk 017 0 ed NFr 11:58 Bld Auto Lymphoc 04-26-2 23.2 % 24.0-44 complet ytes/le 017 .0 ed uk NFr 11:58 Bld Auto Neutrop -26-2 67.0 % 41.0-71 complet hils/le 017 .0 ed uk NFr 11:58 Bld Auto Platele -26-2 220 150-450 complet t # Bld 017 10*3/mm ed Auto 11:58 3 PMV Bld -26-2 10.0 fL 6.0-12. complet Auto 017 0 ed 11:58 RDW RBC -26-2 41.4 fl 37.0-54 complet Auto 017 .0 ed 11:58 RDW RBC -26-2 12.8 % 11.3-14 complet 017 .5 ed Auto-Rt 11:58 o MCHC 04-26-2 33.2 32.0-36 complet RBC 017 g/dL .0 ed Auto-mC 11:58 nc MCH RBC 29.6 pg 27.0-31 complet Qn 017 .0 ed Auto 11:58 MCV RBC 89.1 fL 80.0-99 complet Auto 017 .0 ed 11:58 Hct VFr 46.4 % 38.9-50 complet Bld 017 .9 ed Auto 11:58 Hgb 15.4 13.1-17 complet Bld-mCn 017 g/dL .5 ed c 11:58 RBC # 01-07-2 5.21 4.20-5. complet Bld 017 10*6/mm 76 ed Auto 11:58 3 WBC 5.48 3.50-10 complet nRBC 017 10*3/mm .80 ed cor # 11:58 3 Bld aPTT PPP (01-07-2017 11:58) Comment: PTT = The equivalent PTT values for the therapeutic range of heparin levels at 0.3 to 0.5 U/ml are 45 to 60 seconds. aPTT 25.0 24.0-31 complet PPP 017 seconds .0 ed 11:58 LPL SerPl-cCnc (01-07-2017 11:39) Lipase 23 U/L 6-51 complet SerPl-c 017 ed Cnc 11:39 Lipid pnl with direct LDL SerPl (01-07-2017 11:39) Comment: Cholesterol Reference Ranges: Comment: Desirable < 200 mg/dL Comment: Borderline 200-239 mg/dL Comment: High Risk > 239 mg/dL Comment: Comment: Triglyceride Reference Ranges: Comment: Normal < 150 mg/dL Comment: Borderline 150-199 mg/dL Comment: High 200-499 mg/dL Comment: Very High > 499 mg/dL Comment: Comment: HDL Reference Ranges: Comment: Low < 40 mg/dL Comment: High > 59 mg/dL Comment: Comment: LDL Reference Ranges: Comment: Optimal < 100 mg/dL Comment: Near Optimal 100-129 mg/dL Comment: Borderline 130-159 mg/dL Comment: High 160-189 mg/dL Comment: Very High > 189 mg/dL Articho 108 0-130 complet ke IgE 017 mg/dL ed Qn 11:39 HDLc 44 40-60 complet SerPl-m 017 mg/dL ed Cnc 11:39 Trigl 132 0-150 complet SerPl-m 017 mg/dL ed Cnc 11:39 Cholest 183 0-200 complet 017 mg/dL ed SerPl-m 11:39 Cnc Troponin I SerPl-mCnc (01-07-2017 11:39) Comment: Ultra Troponin I Reference Range: Comment: Comment: <=0.039 ng/mL: Negative Comment: 0.04-0.779 ng/mL: Indeterminate Range. Clinical correlation required. Comment: >=0.78 ng/mL: Consistent with myocardial injury. Clinical correlation required. Troponi < 0.006 <=0.039 complet n I 017 ng/mL ed SerPl-m 11:39 Cnc Comp Metab 1998 Pnl SerPl (01-07-2017 11:39) Comment: [employer] Guidelines Comment: Comment: Stage Description GFR Comment: 1 Normal or High 90+ Comment: 2 Mild decrease 60-89 Comment: 3 Moderate decrease 30-59 Comment: 4 Severe decrease 15-29 Comment: 5 Kidney failure <15 Anion 10.0 3.0-11. complet Gap3 017 mmol/L 0 ed SerPl-s 11:39 Cnc BUN/Cre 14.0 7.0-25. complet at 017 0 ed SerPl 11:39 Albumin 1.5 1.5-2.5 complet /Glob 017 g/dL ed SerPl 11:39 Globuli 2.9 complet n Ur 017 gm/dL ed Elph-mC 11:39 nc GFR/BSA 83 >60 complet .pred 017 mL/min/ ed SerPl 11:39 1.73 MDRD-Ar VRat Bilirub 1.0 0.3-1.2 complet 017 mg/dL ed SerPl-m 11:39 Cnc ALP 52 U/L 25-100 complet SerPl-c 017 ed Cnc 11:39 AST 19 U/L 0-33 complet SerPl-c 017 ed Cnc 11:39 ALT 04-26-2 14 U/L 7-40 complet SerPl w 017 ed 11:39 P-5'-P- cCnc Albumin 4.30 3.20-4. complet 017 g/dL 80 ed SerPl-m 11:39 Cnc Prot 7.2 5.7-8.2 complet SerPl-m 017 g/dL ed Cnc 11:39 Calcium 9.5 8.7-10. complet 017 mg/dL 4 ed XXX-sCn 11:39 c CO2 24.0 20.0-31 complet SerPl-s 017 mmol/L .0 ed Cnc 11:39 Chlorid 103 99-109 complet e 017 mmol/L ed SerPl-s 11:39 Cnc Potassi 4.1 3.5-5.5 complet um 017 mmol/L ed Bld-sCn 11:39 c Sodium 137 132-146 complet Bld-sCn 017 mmol/L ed c 11:39 Creat 1.00 0.60-1. complet Bld-mCn 017 mg/dL 30 ed c 11:39 BUN 14 9-23 complet Bld-mCn 017 mg/dL ed c 11:39 Glucose 102 70-100 complet 017 mg/dL ed Bld-mCn 11:39 c TROPONIN I (10-21-2013 12:30) TROPONI Less 0.00-0. complet N I 014 than 06 ed 12:30 0.02 ng/mL COMPREHENSIVE METABOLIC PANEL (10-21-2013 10:30) Glucose 92 74-106 complet 014 mg/dL ed Bld-mCn 10:30 c BUN 11 7-18 complet Bld-mCn 014 mg/dL ed c 10:30 Creat 1.2 0.8-1.3 complet SerPl-m 014 mg/dL ed Cnc 10:30 Creat 100 50-200 complet Cl 014 ML/MIN ed predict 10:30 ed SerPl C-G-vRa te GFR/BSA 68 Greater complet .pred 014 ML/MIN than ed SerPl 10:30 60 Schwart z-vRate Sodium 142 136-145 complet SerPl-s 014 mmoL/L ed Cnc 10:30 Potassi 02-2 4.1 3.5-5.1 complet um 014 mmoL/L ed SerPl-s 10:30 Cnc Chlorid 102 98-107 complet e 014 mmoL/L ed SerPl-s 10:30 Cnc CO2 35 21.0-32 complet SerPl-s 014 mmoL/L .0 ed Cnc 10:30 Calcium 07-2 8.4 8.5-10. complet 014 mg/dL 1 ed SerPl-m 10:30 Cnc Prot 10-21- 7.2 6.4-8.2 complet SerPl-m 014 gm/dL ed Cnc 10:30 Albumin 10-21- 4.0 3.4-5.0 complet 014 gm/dL ed SerPl-m 10:30 Cnc Globuli 10-21- 3.2 1.3-3.2 complet n 014 gm/dL ed Ser-mCn 10:30 c Albumin 10-21-2 1.3 UNK 1.1-1.8 complet /Glob 014 ed SerPl-m 10:30 Rto Bilirub 10-21-2 0.8 0.2-1.0 complet 014 mg/dL ed SerPl-m 10:30 Cnc AST 10-21-2 18 U/L 15-37 complet SerPl-c 014 ed Cnc 10:30 ALT 07-2 21 U/L 12-78 complet SerPl-c 014 ed Cnc 10:30 ALP 07-2 85 U/L 50-136 complet SerPl-c 014 ed Cnc 10:30 CBC with AUTO DIFF (10-21-2013 10:30) WBC # 02-07-2 5.6 4.8-10. complet Bld 014 K/MM3 8 ed Auto 10:30 RBC # 02-07-2 5.35 4.6-6.2 complet Bld 014 M/mm3 ed Auto 10:30 Hgb 07-2 15.4 14.1-18 complet Bld-mCn 014 g/dL .0 ed c 10:30 Hct Fr 10-21-2 44.1 % 42.0-52 complet Bld 014 .0 ed 10:30 MCV RBC 02-07-2 82.5 fl 82.2-97 complet 014 .8 ed 10:30 MCH RBC 02-07-2 28.8 pg 27-31.2 complet Qn 014 ed Auto 10:30 MEAN -07-2 34.9 31.8-35 complet CORPUSC 014 g/dl .4 ed ULAR 10:30 HGB CONC RDW RBC -07-2 13.5 % 11.5-17 complet Auto 014 .5 ed 10:30 Platele 02-07-2 220 142-424 complet t Bld 014 K/mm3 ed Ql 10:30 Manual MEAN 07-2 7.5 fl 7.4-10. complet PLATELE 014 4 ed T 10:30 VOLUME Granulo 02-07-2 59.6 % 37.0-80 complet cytes 014 .0 ed Fr Bld 10:30 Auto LYMPH % 02-07-2 29.2 % 10-50 complet 014 ed 10:30 Monocyt 02-07-2 6.8 % 1.7-9.3 complet es Fr 014 ed Bld 10:30 Auto Eosinop 02-07-2 3.7 % 0.1-12. complet hil Fr 014 0 ed Bld 10:30 Auto Basophi 02-07-2 0.8 % 0.1-2.0 complet ls Fr 014 ed Bld 10:30 Auto Granulo 02-07-2 3.4 1.3-8.0 complet cytes # 014 K/mm3 ed Bld 10:30 Auto Lymphoc 02-07-2 1.6 0.7-4.5 complet ytes Fr 014 K/mm3 ed Bld 10:30 Auto Monocyt 02-07-2 0.4 0.1-1.0 complet es # 014 K/mm3 ed Bld 10:30 Auto Eosinop 02-07-2 0.2 0.0-0.4 complet hil # 014 K/mm3 ed Bld 10:30 Auto Basophi 02-07-2 0.0 0-0.2 complet ls # 014 K/MM3 ed Bld 10:30 Auto THYROID STIM HORMONE (03-13-2013 16:10) THYROID 03-13-2 0.33 0.358-3 complet STIM 013 uIU/ml .740 ed HORMONE 16:10 MONOSCREEN (03-13-2013 16:10) MONOSCR NEGATIV NEG complet EEN 013 E ed 16:10 URINALYSIS/COMPLETE (03-13-2013 16:00) URINE YELLOW YELLOW complet COLOR 013 ed 16:00 URINE CLEAR CLEAR complet APPEARA 013 ed NCE 16:00 URINE NEGATIV NEG complet GLUCOSE 013 E ed - 16:00 DIPSTIC K URINE NEGATIV NEG complet BILIRUB 013 E ed IN - 16:00 DIPSTIC K URINE NEGATIV NEG complet KETONE 013 E mg/dL ed 16:00 URINE 1.015 1.005-1 complet SPECIFI 013 UNK .030 ed C 16:00 GRAVITY URINE NEGATIV NEG complet BLOOD 013 E ed 16:00 URINE 8.0 UNK 5.0-8.5 complet PH 013 ed 16:00 URINE NEGATIV NEG complet PROTEIN 013 E mg/dL ed - 16:00 DIPSTIC K URINE 0.2 NEG complet UROBILI 013 E.U./dL ed NOGEN - 16:00 DIPSTIC K URINE NEGATIV NEG complet NITRATE 013 E ed - 16:00 DIPSTIC K URINE NEGATIV NEG complet LEUK 013 E ed ESTERAS 16:00 E URINE OCC OCC complet SQUAMOU 013 #/hpf ed S CELLS 16:00 COMPREHENSIVE METABOLIC PANEL (03-10-2013 18:15) Glucose 106 74-106 complet 013 mg/dL ed Bld-mCn 18:15 c BUN 11 7-18 complet Bld-mCn 013 mg/dL ed c 18:15 Creat 1.1 0.8-1.3 complet SerPl-m 013 mg/dL ed Cnc 18:15 ESTIMAT 109 50-200 complet ED 013 ML/MIN ed CREATIN 18:15 INE CLEARAN CE GFR 76 Greater complet (ESTIMA 013 ML/MIN than ed MICHAEL) 18:15 60 Sodium 140 136-145 complet SerPl-s 013 mmoL/L ed Cnc 18:15 Potassi 2 3.5 3.5-5.1 complet um 013 mmoL/L ed SerPl-s 18:15 Cnc Chlorid 104 98-107 complet e 013 mmoL/L ed SerPl-s 18:15 Cnc CO2 29 21.0-32 complet SerPl-s 013 mmoL/L .0 ed Cnc 18:15 Calcium 2 8.5 8.5-10. complet 013 mg/dL 1 ed SerPl-m 18:15 Cnc Prot 2 7.3 6.4-8.2 complet SerPl-m 013 gm/dL ed Cnc 18:15 Albumin 2 4.1 3.4-5.0 complet 013 gm/dL ed SerPl-m 18:15 Cnc Globuli 3.2 1.3-3.2 complet n 013 gm/dL ed Ser-mCn 18:15 c Albumin 2 1.3 UNK 1.1-1.8 complet /Glob 013 ed SerPl-m 18:15 Rto Bilirub 0.6 0.2-1.0 complet 013 mg/dL ed SerPl-m 18:15 Cnc AST 12 U/L 15-37 complet SerPl-c 013 ed Cnc 18:15 ALT 26 U/L 30-65 complet SerPl-c 013 ed Cnc 18:15 ALP 21 U/L 50-136 complet SerPl-c 013 ed Cnc 18:15 LIPID PROFILE (03-10-2013 18:15) Cholest 03-10-2 173 Less complet 013 mg/dL than ed SerPl-m 18:15 200 Cnc HDLc 03-10-2 52.0 40-60 complet SerPl-m 013 MG/DL ed Cnc 18:15 LDLc 03-10-2 102.6 0-130 complet SerPl 013 mg/dL ed Calc-mC 18:15 nc VLDL 2 18.4 0-40 complet CHOLEST 013 UNK ed MAMIE 18:15 Trigl 2 92 30-200 complet SerPl-m 013 mg/dL ed Cnc 18:15 CBC with AUTO DIFF (03-10-2013 18:15) WBC # -27-2 6.1 4.8-10. complet Bld 013 K/MM3 8 ed Auto 18:15 RBC # 27-2 5.69 4.6-6.2 complet Bld 013 M/mm3 ed Auto 18:15 Hgb 03-10-2 16.0 14.1-18 complet Bld-mCn 013 g/dL .0 ed c 18:15 Hct Fr 03-10-2 47.3 % 42.0-52 complet Bld 013 .0 ed 18:15 MCV RBC 03-10-2 83.1 fl 82.2-97 complet 013 .8 ed 18:15 MCH RBC 03-10-2 28.2 pg 27-31.2 complet Qn 013 ed Auto 18:15 MEAN 03-10-2 33.9 31.8-35 complet CORPUSC 013 g/dl .4 ed ULAR 18:15 HGB CONC RDW RBC 03-10-2 13.3 % 11.5-17 complet Auto 013 .5 ed 18:15 Platele 03-10-2 216 142-424 complet t Bld 013 K/mm3 ed Ql 18:15 Manual MEAN 03-10-2 7.0 fl 7.4-10. complet PLATELE 013 4 ed T 18:15 VOLUME Granulo 03-10-2 67.6 % 37.0-80 complet cytes 013 .0 ed Fr Bld 18:15 Auto LYMPH % 03-10-2 22.2 % 10-50 complet 013 ed 18:15 Monocyt 03-10-2 6.8 % 1.7-9.3 complet es Fr 013 ed Bld 18:15 Auto Eosinop --2 2.9 % 0.1-12. complet hil Fr 013 0 ed Bld 18:15 Auto Basophi 27-2 0.6 % 0.1-2.0 complet ls Fr 013 ed Bld 18:15 Auto Granulo -27-2 4.1 1.3-8.0 complet cytes # 013 K/mm3 ed Bld 18:15 Auto Lymphoc -27-2 1.4 0.7-4.5 complet ytes Fr 013 K/mm3 ed Bld 18:15 Auto Monocyt 03-10-2 0.4 0.1-1.0 complet es # 013 K/mm3 ed Bld 18:15 Auto Eosinop 03-10-2 0.2 0.0-0.4 complet hil # 013 K/mm3 ed Bld 18:15 Auto Basophi 03-10-2 0.0 0-0.2 complet ls # 013 K/MM3 ed Bld 18:15 Auto Encounters Encounter Start End Date Code Location Performer Type Date Emergency JEREMIAH Young MD (ER) 4 10:28 4 14:07 [facility] Emergency JEREMIAH Miranda (ER) 3 14:21 3 17:17 [facility] Carol Inpatient CANDACE Boyd MD (IN) 3 17:57 3 11:35 [facility]
--- OUTSIDE RECORDS SUMMARY | 2017-01-10 13:36 | External Medical Summary Rpt ---
Demographics Preferred Language Malagasy Marital Status Unknown Anabaptism Affiliation Unknown Race Unknown Ethnic Group Unknown Author Author , Organization [employer] Address Unknown Phone Unavailable Purpose Continuity of Care Document - through 2016 Immunization No patient found.
--- OUTSIDE RECORDS SUMMARY | 2017-01-10 13:36 | External Medical Summary Rpt ---
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 Role Phone Gavin Boyd MD, Unavailable Unavailable Gavin Boyd MD Purpose Continuity of Care Document - 03-10-2013 through 2016 Problems Code Diagnosis DOS Provider Status 780.79 [facility] and [facility] F41.9 ANXIETY DISORDER, UNSPECIFIED R07.89 OTHER [...] Hgb A1c Bld (01-07-2017 11:58) Comment: The [place] [employer] recommends maintenance of Hemoglobin A1C [...] Young MD (ER) 4 10:28 4 14:07 [facility] Emergency JEREMIAH Miranda (ER) 3 14:21 3 17:17 [facility] Inpatient CANDACE Boyd MD (IN) 3 17:57 3 11:35 [facility]
== END 2017-01-06 13:30 | disposition home or self-care (01) ==
LOC: ER 16:43 → 2ND 18:01 → ER 18:01 → 2ND 18:33
PROVIDERS: Emergency Medicine
DX: R07.9 Chest pain, unspecified (principal); Z87.891 Personal history of nicotine dependence; R06.02 Shortness of breath
CPT/HCPCS: G0378

== ENCOUNTER 2017-06-23 14:40 | Emergency (ER) | payer BC ==
[~2017-06-23] VITALS: Ht 177.8 cm; Wt 86.2 kg
[~2017-06-23 14:40] MED LIST changes: +ASPIRIN325 M1 PO; +ESCITALOPRAM10 M1 PO; +NITROGLYCERIN0.4 M1 SL; +OMEPRAZOLE40 MG PO; +PANTOPRAZOLE SO40 M1 PO; +PROCTOCREAM-HC2.5% TP
[2017-06-23 15:09] LABS: HEMOGLOBIN 15.6 g/dL (14.1-18.0); LYMPH # 1.6 K/mm3 (0.7-4.5); LYMPH % 23.9 % (10-50)
--- NOTE | 2017-06-23 15:13 | RADIOLOGY REPORT PS360 ---
CT HEAD W/O CONTRAST HISTORY: Severe headache with dizziness and blurred vision HEADACHE ORDERING PHYSICIAN: Vikki Gilbert MD PATIENT AGE: 41 years COMPARISON: 03/13/2013 TECHNIQUE: Axial images obtained without contrast. Brain and bone windows reviewed. FINDINGS: No midline shift, mass effect, intracranial hemorrhage, hydrocephalus, or extra-axial fluid collection is evident. There is slight increased density within the right middle cranial fossa posteriorly seen on image #11. This is probably related to artifact having a somewhat similar appearance on the previous exam of 03/13/2013 with a subsequent negative cranial MRI. The calvarium has an unremarkable appearance. No mastoid effusion. The visualized paranasal sinuses are unremarkable. IMPRESSION: 1. No acute finding. 2. Vague increased density in the right middle cranial fossa posteriorly possibly related to volume average artifact from the cortex with a somewhat similar appearance on the previous exam. This may be confirmed with repeating exam with contrast if clinically warranted or preferably outpatient MRI without and with contrast.
[2017-06-23 15:37] LABS: BUN 15 mg/dL (7-18); GFR (ESTIMATED) 67 ML/MIN (>60)
--- NOTE | 2017-06-23 16:06 | RADIOLOGY REPORT PS360 ---
CHEST(2 VIEWS-NOT PORTABLE) HISTORY: HYPERTENSION ORDERING PHYSICIAN: Vikki Gilbert MD PATIENT AGE: 41 years COMPARISON: 01/06/2017 FINDINGS: The cardiomediastinal silhouette and pulmonary vascularity are within normal limits. The lungs are clear without infiltrates, suspicious nodules, or pleural effusions. No acute bony abnormalities. There is calcified granuloma in the right upper lobe. On the lateral view there is a nodular opacity over the inferior hilar region anteriorly at 10 mm possibly related to summation density versus a calcified node. Follow-up may confirm stability. IMPRESSION: 1. No acute finding. 2. Old granulomatous disease. 3. Nodular opacity overlies the hilum and may be on the right possibly related to calcified lymph node. Consider follow-up to confirm stability.
--- NOTE | 2017-06-23 17:32 | Emergency Room Report ---
History of Present Illness Time Seen by 144Cayetano Presenting Problem in Triage Pt arrived:Walked Presenting Problem:HYPERTENSION, HEADACHE. PT WAS SENT TO ED BY DR RAMSAY OFFICE. STATES THEY FOUND SOMETHING WRONG ON HIS EKG. 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 N Clinical Suspician of Infection? N Mental Status: 1 - Regular (Normal Baseline) Sepsis Risk:Low Sepsis Risk Have you (or family members/close friends) recently traveled outside the [place]? N If Yes, where/when: Have you had exposure to infectious disease within the past month? TB? Other? Specify: Patient sent over from PCP Phil Herbert's office today as she perceived an irregular HB on exam while evaluating him for migraine. He has a hx of migraines with aura, had an aura two days ago, followed by diffuse headache. He does not have those symptoms now and is declining any pain medication. Phil states she sent the EKG to Dr. Preciado in cardiology for review and it was read as normal. Patient has been seen previously in [place] by Dr. Alva. Patient denies chest pain or palpitations at this time. No visual changes currently. No vomiting or syncope. Reports remote hx of tobacco use; FH of CVA, HTN, migraine. Had a normal LHC about two months ago by his report. ALLERGIES Coded Allergies: Iodinated Contrast- Oral and IV Dye (Iodinated Contrast Media - Oral and) ( Intermediate, 01/06/17) Home Medications Reported Medications Omeprazole (Omeprazole 40MG) 40 MG PO DAILY #30 Escitalopram Oxalate 10 MG PO DAILY #30 History Medical History General CAD? No Angina: Yes [place]: No Hypertension? Yes Hyperlipidemia? No CHF? No DVT? No PE? No COPD? No Asthma? No Anemia? No GERD? No Gastric ulcers? No GI Bleed? No Hernia? No Thyroid Problems? No Hypothyroidism? No CVA? No Seizures? No Diabetes? No Renal Insuffiency? No End Stage Renal Disease? No UTI? No Stones? No BPH? No GB Disease: No Nephritic Syndrome? No Asplenia? No Hepatitis? No Sickle Cell Disease? No Arthritis? No Migraines? No Cataracts? No Glaucoma? No MRSA? No HIV? No TB? No Anxiety? No Depression? 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 Yes Additional hx: MONO IN 2016 PERSISTANT LEFT SIDE PAIN Immunization Hx DT/Tetanus 1-4 Years Ago Flu Refused Pneumonia Refuses Surgical Hx Previous Surgery?Y RT.WRIST LIGAMENT REPAIR VASECTOMY AND REVERSED L KNEE Family History Family Hx Diabetes No CAD Yes Hypertension Yes Hyperlipidemia Yes Cancer Yes TB No Social History Smoking Hx Smoker: Former Smoker Tobacco: No Packs/day N/A Alcohol Alcohol: Yes Review of Systems All Other Systems Reviewed and Negative Cardiovascular see HPI Psychiatric/Neurological see HPI Physical Exam Vital Signs Vital Signs Date Time Temp Pulse Resp B/P Pulse O2 O2 Flow FiO2 Ox Delivery Rate 06/23 1718 98 20 129/86 99 06/23 1534 88 20 137/88 99 06/23 1441 98.7 89 20 145/92 100 General Appearance normal appearance, WD/WN, no apparent distress Eye Exam - bilateral eye normal exam, bilateral eye PERRL, bilateral eye EOMI (no field cuts or diplopia) Neck normal inspection, non-tender, supple, full range of motion (no bruits or masses) Respiratory Status Yes: trachea midline, chest symmetrical, non tender chest. No: respiratory distress, tender on palpation, use of accessory muscles, pain on inspiration, pain on expiration, productive cough, non productive cough. Lung Sounds bilateral: normal breath sounds, lungs clear. Cardiovascular normal exam, regular rate/rhythm, no peripheral edema, no gallop, no JVD, no murmur, no rub, normal peripheral pulses Gastrointestinal normal bowel sounds, normal exam, non tender, soft, no organomegaly, no pulsatile mass, no guarding, no rebound Extremities non-tender, normal range of motion, no calf tenderness, no pedal edema Strength 5 Upper Ext (L), 5 Upper Ext (R), 5 Lower Ext (L), 5 Lower Ext (R) Neurologic alert, motor expert II-XII nml as tested, normal exam, no motor/sensory deficits, oriented x 3 (NIHSS 0; F to N normal), newspaper illustrator equal gait steady Glascow Coma Scale Glascow Coma Scale Response Value EYE response: 4 Spontaneously 4 MOTOR response: 6 OBEYS 6 VERBAL response: 5 Oriented & Converses 5 Total 15 Reflexes Reflexes normal Yes Skin intact, normal color, warm/dry Medical Decision Making LABS/Meds/Orders Pt receiving controlled substance in ED? No (no pain) Results/Orders Laboratory Tests 06/23/17 1455: Sodium 141, Potassium 4.1, Chloride 104, Carbon Dioxide 30, BUN 15, Creatinine 1.2, Estimated Creat Clear 100, Estimated GFR (MDRD) 67, Glucose 93, Calcium 8.8 , Total Bilirubin 0.7, AST 14 L, ALT 17, Alkaline Phosphatase 69, Creatine Kinase 93, CK-MB (CK-2) Rel Index 0.5, CK and CKMB Interp < 0.5, Troponin I < 0.02, Total Protein 7.7, Albumin 4.1, Globulin 3.6 H, Albumin/Globulin Ratio 1.1, WBC 6.8, RBC 5.33, Hgb 15.6, Hct 45.0, MCV 84.3, RDW 12.5, Plt Count 227, MPV 7.5, Gran % 66.3, Gran # 4.5, Lymphocytes % 23.9, Monocytes % 7.2, Eosinophils % 1.9, Basophils % 0.8, Lymphocytes # 1.6, Monocytes # 0.5, Eosinophils # 0.1, Basophils # 0.1, PUBS MCHC 34.8, MCH 29.3 Current Medication Orders Sig/Kvng Start time Last Medication Dose Route Stop Time Status Admin Sodium Chloride 10 ML PRN PRN 06/23 144 AC IV 06/24 144 Orders Procedure Date/time Status DIET-NOTHING BY MOUTH 06/23 D Active ELECTROCARDIOGRAM REQUEST 06/[address] HEAD REQ 06/23 1445 Complete IV SALINE LOCK 06/23 1445 Active COMPLETE METABOLIC PANEL 06/23 1445 Complete CBC WITH AUTO DIFF 06/23 1445 Complete CARDIAC ENZYMES 06/23 1445 Complete 12 LEAD EKG-MANUEL (INITIAL) 06/23 UNK Active CM/EKG CM/EKG EKG rate, NSR, rhythm, no evid. of ischemic chgs, no ectopy, normal QRS, normal FL, normal EKG (ROSALIND HR 96) XRAY/CT/US XRAY/CT/US CT head CT interpretation by reviewed by me (report reviewed) Time results known: 172 CT Results normal/NAD, an area of questionable attentuation somewhat similar to prior with recommendation for further studies as warranted clinically Progress ED Progress Notes Date 06/23/17 Time 1729 Comment I discussed the findings on CT w/ the pt and his . He has declined CT w/ contrast at this time and prefers to f/u with Phil for discussion regarding possible MRI. SBP in the 120's and will f/u with PCP for recheck in one to two days as some readings were a little elevated in the ED today. Departure Departure Time of Disposition 173 Disposition DC Home or Self Care(routine) Clinical Impression Primary Impression: Migraine Qualifiers: Migraine type: unspecified Status migrainosus presence: without status migrainosus Intractability: not intractable Qualified Code: G43.909 - Migraine, unspecified, not intractable, without status migrainosus Condition STABLE Referrals MARIBETH LOMBARDO (Family) Patient Instructions Migraine -- Adult Additional Instructions See Phil for further outpatient work up and recheck blood pressure, one to two days, and see your dairy supplies sales representative of choice for further evaluation as well. Discharge Counseling Counseled pt/family regarding diagnosis, test results, home care, follow up needs ED Critical Care Critical Care No at [id number]
--- NOTE | 2017-06-23 17:32 | Emergency Room Report ---
History of Present Illness Time Seen by 144Cayetano Presenting Problem in Triage Pt arrived:Walked Presenting Problem:HYPERTENSION, HEADACHE. PT WAS SENT TO ED BY DR RAMSAY OFFICE. STATES THEY FOUND SOMETHING WRONG ON HIS EKG. 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 N Clinical Suspician of Infection? N Mental Status: 1 - Regular (Normal Baseline) Sepsis Risk:Low Sepsis Risk Have you (or family members/close friends) recently traveled outside the [place]? N If Yes, where/when: Have you had exposure to infectious disease within the past month? TB? Other? Specify: Patient sent over from PCP Phil Herbert's office today as she perceived an irregular HB on exam while evaluating him for migraine. He has a hx of migraines with aura, had an aura two days ago, followed by diffuse headache. He does not have those symptoms now and is declining any pain medication. Phil states she sent the EKG to Dr. Preciado in cardiology for review and it was read as normal. Patient has been seen previously in [place] by Dr. Alva. Patient denies chest pain or palpitations at this time. No visual changes currently. No vomiting or syncope. Reports remote hx of tobacco use; FH of CVA, HTN, migraine. Had a normal LHC about two months ago by his report. ALLERGIES Coded Allergies: Iodinated Contrast- Oral and IV Dye (Iodinated Contrast Media - Oral and) ( Intermediate, 01/06/17) Home Medications Reported Medications Omeprazole (Omeprazole 40MG) 40 MG PO DAILY #30 Escitalopram Oxalate 10 MG PO DAILY #30 History Medical History General CAD? No Angina: Yes [place]: No Hypertension? Yes Hyperlipidemia? No CHF? No DVT? No PE? No COPD? No Asthma? No Anemia? No GERD? No Gastric ulcers? No GI Bleed? No Hernia? No Thyroid Problems? No Hypothyroidism? No CVA? No Seizures? No Diabetes? No Renal Insuffiency? No End Stage Renal Disease? No UTI? No Stones? No BPH? No GB Disease: No Nephritic Syndrome? No Asplenia? No Hepatitis? No Sickle Cell Disease? No Arthritis? No Migraines? No Cataracts? No Glaucoma? No MRSA? No HIV? No TB? No Anxiety? No Depression? 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 Yes Additional hx: MONO IN 2016 PERSISTANT LEFT SIDE PAIN Immunization Hx DT/Tetanus 1-4 Years Ago Flu Refused Pneumonia Refuses Surgical Hx Previous Surgery?Y RT.WRIST LIGAMENT REPAIR VASECTOMY AND REVERSED L KNEE Family History Family Hx Diabetes No CAD Yes Hypertension Yes Hyperlipidemia Yes Cancer Yes TB No Social History Smoking Hx Smoker: Former Smoker Tobacco: No Packs/day N/A Alcohol Alcohol: Yes Review of Systems All Other Systems Reviewed and Negative Cardiovascular see HPI Psychiatric/Neurological see HPI Physical Exam Vital Signs Vital Signs Date Time Temp Pulse Resp B/P Pulse O2 O2 Flow FiO2 Ox Delivery Rate 06/23 1718 98 20 129/86 99 06/23 1534 88 20 137/88 99 06/23 1441 98.7 89 20 145/92 100 General Appearance normal appearance, WD/WN, no apparent distress Eye Exam - bilateral eye normal exam, bilateral eye PERRL, bilateral eye EOMI (no field cuts or diplopia) Neck normal inspection, non-tender, supple, full range of motion (no bruits or masses) Respiratory Status Yes: trachea midline, chest symmetrical, non tender chest. No: respiratory distress, tender on palpation, use of accessory muscles, pain on inspiration, pain on expiration, productive cough, non productive cough. Lung Sounds bilateral: normal breath sounds, lungs clear. Cardiovascular normal exam, regular rate/rhythm, no peripheral edema, no gallop, no JVD, no murmur, no rub, normal peripheral pulses Gastrointestinal normal bowel sounds, normal exam, non tender, soft, no organomegaly, no pulsatile mass, no guarding, no rebound Extremities non-tender, normal range of motion, no calf tenderness, no pedal edema Strength 5 Upper Ext (L), 5 Upper Ext (R), 5 Lower Ext (L), 5 Lower Ext (R) Neurologic alert, x ray equipment servicer II-XII nml as tested, normal exam, no motor/sensory deficits, oriented x 3 (NIHSS 0; F to N normal), procedure manager equal gait steady Glascow Coma Scale Glascow Coma Scale Response Value EYE response: 4 Spontaneously 4 MOTOR response: 6 OBEYS 6 VERBAL response: 5 Oriented & Converses 5 Total 15 Reflexes Reflexes normal Yes Skin intact, normal color, warm/dry Medical Decision Making LABS/Meds/Orders Pt receiving controlled substance in ED? No (no pain) Results/Orders Laboratory Tests 06/23/17 1455: Sodium 141, Potassium 4.1, Chloride 104, Carbon Dioxide 30, BUN 15, Creatinine 1.2, Estimated Creat Clear 100, Estimated GFR (MDRD) 67, Glucose 93, Calcium 8.8 , Total Bilirubin 0.7, AST 14 L, ALT 17, Alkaline Phosphatase 69, Creatine Kinase 93, CK-MB (CK-2) Rel Index 0.5, CK and CKMB Interp < 0.5, Troponin I < 0.02, Total Protein 7.7, Albumin 4.1, Globulin 3.6 H, Albumin/Globulin Ratio 1.1, WBC 6.8, RBC 5.33, Hgb 15.6, Hct 45.0, MCV 84.3, RDW 12.5, Plt Count 227, MPV 7.5, Gran % 66.3, Gran # 4.5, Lymphocytes % 23.9, Monocytes % 7.2, Eosinophils % 1.9, Basophils % 0.8, Lymphocytes # 1.6, Monocytes # 0.5, Eosinophils # 0.1, Basophils # 0.1, PUBS MCHC 34.8, MCH 29.3 Current Medication Orders Sig/Kvng Start time Last Medication Dose Route Stop Time Status Admin Sodium Chloride 10 ML PRN PRN 06/23 144 AC IV 06/24 144 Orders Procedure Date/time Status DIET-NOTHING BY MOUTH 06/23 D Active ELECTROCARDIOGRAM REQUEST 06/[address] HEAD REQ 06/23 1445 Complete IV SALINE LOCK 06/23 1445 Active COMPLETE METABOLIC PANEL 06/23 1445 Complete CBC WITH AUTO DIFF 06/23 1445 Complete CARDIAC ENZYMES 06/23 1445 Complete 12 LEAD EKG-MANUEL (INITIAL) 06/23 UNK Active CM/EKG CM/EKG EKG rate, NSR, rhythm, no evid. of ischemic chgs, no ectopy, normal QRS, normal [place], normal EKG (ROSALIND HR 96) XRAY/CT/US XRAY/CT/US CT head CT interpretation by reviewed by me (report reviewed) Time results known: 172 CT Results normal/NAD, an area of questionable attentuation somewhat similar to prior with recommendation for further studies as warranted clinically Progress ED Progress Notes Date 06/23/17 Time 1729 Comment I discussed the findings on CT w/ the pt and his . He has declined CT w/ contrast at this time and prefers to f/u with Phil for discussion regarding possible MRI. SBP in the 120's and will f/u with PCP for recheck in one to two days as some readings were a little elevated in the ED today. Departure Departure Time of Disposition 173 Disposition DC Home or Self Care(routine) Clinical Impression Primary Impression: Migraine Qualifiers: Migraine type: unspecified Status migrainosus presence: without status migrainosus Intractability: not intractable Qualified Code: G43.909 - Migraine, unspecified, not intractable, without status migrainosus Condition STABLE Referrals MARIBETH LOMBARDO (Family) Patient Instructions Migraine -- Adult Additional Instructions See Phil for further outpatient work up and recheck blood pressure, one to two days, and see your fence setter of choice for further evaluation as well. Discharge Counseling Counseled pt/family regarding diagnosis, test results, home care, follow up needs ED Critical Care Critical Care No at 1731
[2017-06-23 17:40] VITALS: BP 129/90
--- OUTSIDE RECORDS SUMMARY | 2017-06-27 06:18 | External Medical Summary Rpt | CCD ---
Demographics Preferred Language Somali Marital Status Unknown Episcopal Affiliation Unknown Race Unknown Ethnic Group Unknown Author Author , ISABELA CASTILLO Address Unknown Phone [email or web address] Immunization Name Date Rout CVX Reac Dose Comm Prov Is Faci e tion ent ider Refu lity Give sed n Td 03-0 9 999 Hist H149 No H149 (delphine 4-19 ori lt), 97 al Info adso rmat rbed ion - Sour ce Unsp ecif ied
--- OUTSIDE RECORDS SUMMARY | 2017-06-27 06:18 | External Medical Summary Rpt | CCD ---
Demographics Preferred Language Swedish Marital Status Unknown Catholic Affiliation Unknown Race Unknown Ethnic Group Unknown Author Author , ISABELA CASTILLO Address Unknown Phone [email or web address] Immunization Name Date Rout CVX Reac Dose Comm Prov Is Faci e tion ent ider Refu lity Give sed n Td 03-0 9 999 Hist H149 No H149 (delphine 4-19 ori lt), 97 al Info adso rmat rbed ion - Sour ce Unsp ecif ied
--- OUTSIDE RECORDS SUMMARY | 2017-06-27 06:18 | External Medical Summary Rpt | CCD ---
Author Author , ANNA Organization ANNA Address Unknown Phone [email or web address] Care Team Providers Care Manager Of Pharmacy Name Role Phone Gavin Boyd MD, Unavailable Unavailable Gavin Boyd MD Purpose Continuity of Care Document - 03-10-2013 through 2016 Problems Code Diagnosis DOS Provider Status 780.79 Malaise and Hebert [facility] F41.9 ANXIETY DISORDER, UNSPECIFIED R07.89 [...] ti ML ve Sy ri ng e As 63 06 1 No pi 73 -2 ri 90 7- Lo n 02 20 ng EC 30 13 er 1 32 Ac 5M ti G ve Ta bl et Vital Signs 10-21-2013 14:01 Name Value Interpretat [...] Hgb A1c Bld (01-07-2017 11:58) Comment: The [place] [employer] recommends maintenance of Hemoglobin A1C at 7.0% or lower. Goals for Hemoglobin A1C reduction may need to be modified if hypoglycemia is a problem. Hgb A1c 4.80 % 4.80-5. complet MFr 017 60 ed Bld 11:58 CBC W Diff pnl,unspecified Bld (01-07-2017 11:58) Imm 04-26-2 0.01 0.00-0. complet Granulo 017 10*3/mm 03 [...] ed k NFr 11:58 Bld Auto Monocyt 04-26-2 8.0 % 0.0-12. complet es/leuk 017 0 ed NFr 11:58 Bld Auto Lymphoc 04-26-2 23.2 % 24.0-44 complet ytes/le 017 .0 ed uk NFr 11:58 Bld Auto Neutrop 04-26-2 67.0 % 41.0-71 complet hils/le 017 .0 ed uk NFr 11:58 Bld Auto Platele 04-26-2 220 150-450 complet t # Bld 017 10*3/mm ed Auto 11:58 3 PMV Bld -26-2 10.0 fL 6.0-12. complet Auto 017 0 ed 11:58 RDW RBC 04-26-2 41.4 fl 37.0-54 complet Auto 017 .0 ed 11:58 RDW RBC 04-26-2 12.8 % 11.3-14 complet 017 .5 ed Auto-Rt 11:58 o MCHC 01-07-2 33.2 32.0-36 complet RBC 017 g/dL .0 ed Auto-mC 11:58 nc MCH RBC 01-07-2 29.6 pg 27.0-31 complet Qn 017 .0 ed Auto 11:58 MCV RBC 01-07-2 89.1 fL 80.0-99 complet Auto 017 .0 ed 11:58 Hct VFr 01-07-2 46.4 % 38.9-50 complet Bld 017 .9 ed Auto 11:58 Hgb --2 15.4 13.1-17 complet Bld-mCn 017 g/dL .5 ed c 11:58 RBC # -26-2 5.21 4.20-5. complet Bld 017 10*6/mm 76 ed Auto 11:58 3 WBC 01-07-2 5.48 3.50-10 complet nRBC 017 10*3/mm .80 ed cor # 11:58 3 Bld aPTT PPP (01-07-2017 11:58) Comment: PTT = The equivalent PTT values for the therapeutic range of heparin levels at 0.3 to 0.5 U/ml are 45 to 60 seconds. aPTT 01-07- 25.0 24.0-31 complet PPP 017 seconds .0 ed 11:58 Lipid pnl with direct LDL SerPl (01-07-2017 [...] IgE 017 mg/dL ed Qn 11:39 HDLc 01-07-2 44 40-60 complet SerPl-m 017 mg/dL ed [...] complet SerPl-c 017 ed Cnc 11:39 ALT 14 U/L 7-40 complet SerPl w 017 [...] complet 017 mg/dL ed Bld-mCn 11:39 c LPL SerPl-cCnc (01-07-2017 11:39) Lipase 23 U/L 6-51 complet SerPl-c 017 ed Cnc 11:39 TROPONIN I (10-21-2013 12:30) TROPONI Less 0.00-0. [...] SerPl-s 014 mmoL/L ed Cnc 10:30 Potassi 2 4.1 3.5-5.1 complet um 014 mmoL/L ed SerPl-s 10:30 Cnc Chlorid 102 98-107 complet e 014 mmoL/L ed SerPl-s 10:30 Cnc CO2 35 21.0-32 complet SerPl-s 014 mmoL/L .0 ed Cnc 10:30 Calcium 8.4 8.5-10. complet 014 mg/dL 1 ed SerPl-m 10:30 Cnc Prot 10-21- 7.2 6.4-8.2 complet SerPl-m 014 gm/dL ed Cnc 10:30 Albumin 4.0 3.4-5.0 complet 014 gm/dL ed SerPl-m 10:30 Cnc Globuli 10-21-2 3.2 1.3-3.2 complet n 014 gm/dL ed Ser-mCn 10:30 c Albumin 10-21-2 1.3 UNK 1.1-1.8 complet /Glob 014 ed SerPl-m 10:30 Rto Bilirub 10-21-2 0.8 0.2-1.0 complet 014 mg/dL ed SerPl-m 10:30 Cnc AST 10-21- 18 U/L 15-37 complet SerPl-c 014 ed Cnc 10:30 ALT 10-21-2 21 U/L 12-78 complet SerPl-c 014 ed [...] g/dL .0 ed c 10:30 Hct Fr 07-2 44.1 % 42.0-52 complet Bld 014 .0 ed 10:30 MCV RBC 10-21- 82.5 fl 82.2-97 complet 014 .8 ed 10:30 MCH RBC 07-2 28.8 pg 27-31.2 complet Qn 014 ed Auto 10:30 MEAN 34.9 31.8-35 complet CORPUSC 014 g/dl .4 ed ULAR 10:30 HGB CONC RDW RBC 10-21- 13.5 % 11.5-17 complet Auto 014 .5 ed 10:30 Platele 10-21-2 220 142-424 complet t Bld 014 K/mm3 ed Ql 10:30 Manual MEAN 7.5 fl 7.4-10. complet PLATELE 014 4 ed T 10:30 VOLUME Granulo 10-21-2 59.6 % 37.0-80 complet cytes 014 .0 ed Fr Bld 10:30 Auto LYMPH % 07-2 29.2 % 10-50 complet 014 ed 10:30 Monocyt 07-2 6.8 % 1.7-9.3 complet es Fr 014 ed Bld 10:30 Auto Eosinop -07-2 3.7 % 0.1-12. complet hil Fr 014 0 ed Bld 10:30 Auto Basophi -07-2 0.8 % 0.1-2.0 complet ls Fr 014 ed Bld 10:30 Auto Granulo -07-2 3.4 1.3-8.0 complet cytes # 014 K/mm3 ed Bld 10:30 Auto Lymphoc -07-2 1.6 0.7-4.5 complet ytes Fr 014 K/mm3 ed Bld 10:30 Auto Monocyt -07-2 0.4 0.1-1.0 complet es # 014 K/mm3 ed Bld 10:30 Auto Eosinop 02-07-2 0.2 0.0-0.4 complet hil # 014 K/mm3 ed Bld 10:30 Auto Basophi 02-07-2 0.0 0-0.2 complet ls # 014 K/MM3 ed Bld 10:30 Auto THYROID STIM HORMONE (03-13-2013 16:10) THYROID 0.33 0.358-3 complet STIM 013 uIU/ml .740 [...] 013 mmoL/L ed SerPl-s 18:15 Cnc Chlorid 03-10-2 104 98-107 complet e 013 mmoL/L ed SerPl-s 18:15 Cnc CO2 29 21.0-32 complet SerPl-s 013 mmoL/L .0 ed Cnc 18:15 Calcium 2 8.5 8.5-10. complet 013 mg/dL 1 ed SerPl-m 18:15 Cnc Prot 03-10-2 7.3 6.4-8.2 complet SerPl-m 013 gm/dL ed Cnc 18:15 Albumin 4.1 3.4-5.0 complet 013 gm/dL ed SerPl-m 18:15 Cnc Globuli 2 3.2 1.3-3.2 complet n 013 gm/dL ed Ser-mCn 18:15 c Albumin 2 1.3 UNK 1.1-1.8 complet /Glob 013 ed SerPl-m 18:15 Rto Bilirub 2 0.6 0.2-1.0 complet 013 mg/dL ed SerPl-m 18:15 Cnc AST 2 12 U/L 15-37 complet SerPl-c 013 ed Cnc 18:15 ALT 03-10-2 26 U/L 30-65 complet SerPl-c 013 ed Cnc 18:15 ALP 03-10-2 21 U/L 50-136 complet SerPl-c 013 ed Cnc 18:15 LIPID PROFILE (03-10-2013 18:15) Cholest 03-10-2 173 Less complet 013 mg/dL than ed SerPl-m 18:15 200 Cnc HDLc 03-10-2 52.0 40-60 complet SerPl-m 013 MG/DL ed Cnc 18:15 LDLc 03-10-2 102.6 0-130 complet SerPl 013 mg/dL ed Calc-mC 18:15 nc VLDL 03-10-2 18.4 0-40 complet CHOLEST 013 UNK ed MAMIE 18:15 Trigl 03-10-2 92 30-200 complet SerPl-m 013 mg/dL ed Cnc 18:15 CBC with AUTO DIFF (03-10-2013 18:15) WBC # 27-2 6.1 4.8-10. complet Bld 013 K/MM3 8 [...] complet Qn 013 ed Auto 18:15 MEAN 33.9 31.8-35 complet CORPUSC 013 g/dl .4 ed ULAR 18:15 HGB CONC RDW RBC 03-10-2 13.3 % 11.5-17 complet Auto 013 .5 ed 18:15 Platele 03-10-2 216 142-424 complet t Bld 013 K/mm3 ed Ql 18:15 Manual MEAN 2 7.0 fl 7.4-10. complet PLATELE 013 4 ed T 18:15 VOLUME Granulo 03-10-2 67.6 % 37.0-80 complet cytes 013 .0 ed Fr Bld 18:15 Auto LYMPH % 03-10-2 22.2 % 10-50 complet 013 ed 18:15 Monocyt 03-10-2 6.8 % 1.7-9.3 complet es Fr 013 ed Bld 18:15 Auto Eosinop 03-10-2 2.9 % 0.1-12. complet hil Fr 013 0 ed Bld 18:15 Auto Basophi 03-10-2 0.6 % 0.1-2.0 complet ls Fr 013 ed Bld 18:15 Auto Granulo 03-10-2 4.1 1.3-8.0 complet cytes # 013 K/mm3 ed Bld 18:15 Auto Lymphoc 03-10-2 1.4 0.7-4.5 complet ytes Fr 013 K/mm3 [...] Young MD (ER) 4 10:28 4 14:07 [facility] JEREMIAH Miranda (ER) 3 14:21 3 17:17 [facility]. Inpatient CANDACE Boyd MD ([place]) 3 17:57 3 11:35 [facility]
--- OUTSIDE RECORDS SUMMARY | 2017-06-27 06:18 | External Medical Summary Rpt | CCD ---
Author Author , ANNA Organization ANNA Address Unknown Phone [email or web address] Providers Care Communications Engineering Technician Name Role Phone Gavin Boyd MD, Unavailable Unavailable Gavin Boyd MD Purpose Continuity of Care Document - 03-10-2013 through 2016 Problems Code Diagnosis DOS Provider Status 780.79 Malaise and Hebert [facility] F41.9 ANXIETY DISORDER, UNSPECIFIED R07.89 OTHER [...] Hgb A1c Bld (01-07-2017 11:58) Comment: The [place] [employer] recommends maintenance of Hemoglobin A1C [...] Young MD (ER) 4 10:28 4 14:07 [facility] JEREMIAH Miranda (ER) 3 14:21 3 17:17 [facility] [place]. Inpatient CANDACE Boyd MD ([place]) 3 17:57 3 11:35 [facility]
== END 2017-06-23 17:40 | disposition home or self-care (01) ==
LOC: ER 14:40
PROVIDERS: Emergency Medicine
DX: G43.909 Migraine, unspecified, not intractable, without status migrainosus (principal); I10 Essential (primary) hypertension; I20.8 Other forms of angina pectoris

== ENCOUNTER → 2017-06-30 | Outpatient (CLI) | payer BC ==
--- NOTE | 2017-07-01 09:11 | RADIOLOGY REPORT PS360 ---
MRI-BRAIN W/WO HISTORY: Severe headache with dizziness and blurred vision with abnormal CT of the brain ABNORMAL BRAIN CT ORDERING PHYSICIAN: Phil Herbert APRN PATIENT AGE: 41 years COMPARISON: None TECHNIQUE: Standard multiplanar multiecho sequences are performed without and with contrast. FINDINGS: No midline shift, mass effect, intracranial hemorrhage, hydrocephalus, or acute infarction is evident. No abnormal or strictured diffusion. There are no enhancing lesions. Specifically, the area of interest in the right temporal lobe has an unremarkable MRI appearance and was likely related to partial volume averaging from the overlying sulcus. There is normal stoll-white matter differentiation. On a small subcortical T2 hyperintensities noted in the right parietal region which is nonspecific. There are no enhancing lesions apparent. The cerebellopontine angle, cerebellum, and brainstem are unremarkable. The pituitary and optic chiasm and corpus callosum have an unremarkable appearance. No mastoid effusion or sinus air-fluid level. IMPRESSION: 1. Essentially negative MRI of the brain without contrast. 2. Specifically, no abnormality to correspond to the CT finding in the right temporal lobe indicating that was merely an artifact on the CT. 3. Small subcortical T2 hyperintensity in the right parietal lobe nonspecific.
== END ==
LOC: RAD 10:36
DX: R90.89 Other abnormal findings on diagnostic imaging of central nervous system (principal)
CPT/HCPCS: A9576

== ENCOUNTER → 2017-07-21 | Outpatient (CLI) | payer BC ==
--- NOTE | 2017-07-26 12:29 | RADIOLOGY REPORT PS360 ---
MRI-ABD W/WO CLINICAL INDICATION: Splenomegaly, left upper quadrant pain, portal hypertension, cirrhosis SPLENOMEGALY ORDERING PHYSICIAN: Robert Jackson MD PATIENT AGE: 42 years TECHNIQUE: Multiplanar multiecho sequences are performed without and with contrast COMPARISON: CT scan 12/30/2016 FINDINGS: Mild splenomegaly at 14 cm. No splenic lesions are evident. No perisplenic fluid collections or subcapsular hematoma. The pancreas, adrenal glands, kidneys, and gallbladder have an unremarkable appearance. There is no focal liver lesion evident.. No masses or abnormal fluid collections within the abdomen. The portal vein does not appear enlarged and no varices are evident. IMPRESSION: 1. Mild splenomegaly at 14 cm. 2. Otherwise negative MRI of the upper abdomen
== END ==
LOC: RAD 09:20
DX: R16.1 Splenomegaly, not elsewhere classified (principal)
CPT/HCPCS: A9576